=== PATIENT | female | born 1950 | race Caucasian/White ===

== ENCOUNTER 2016-07-12 10:57 | Emergency (ER) | payer OTHER ==
[2016-07-12] MEDS ORDERED: cefTRIAXone 1 GM VIAL ONE (12:00)
--- NOTE | 2016-07-12 12:02 | ED Physician Documentation ---
History of Present Illness - Stated complaint Stated Complaint: ELEV BLOOD SUGAR - Chief complaint Chief Complaint: General - History obtained from History obtained from: Patient, Family - History of Present Illness Timing: How many days ago (10) - Additonal information Additional information: 65 y/o female has been ill with cough and congestion for about 2 weeks and her sugar has been running high. She has not been testing since about March and she had an A1C done yesterday that was very elevated and her doctor has asked her to come in to the ED for evaluation. She has been drinking a lot of water recently. Review of Systems Constitutional: denies: Fever, Chills Eyes: denies: Decreased vision Ears: denies: Ear pain Nose: reports: Rhinorrhea / runny nose, Congestion Throat: denies: Sore throat Cardiac: denies: Chest pain / pressure, Palpitations Respiratory: reports: Cough. denies: Dyspnea GI: reports: Nausea. denies: Abdominal Pain, Vomiting : denies: Dysuria, Frequency Skin: denies: Rash Musculoskeletal: denies: Neck pain, Back pain, Extremity pain PD PAST MEDICAL HISTORY - Past Medical History Past Medical History: Yes Cardiovascular: Hypertension, High cholesterol Endocrine/Autoimmune: Type 2 diabetes Musculoskeletal: Gout Other Past Medical History: Fibray's disease - Past Surgical History Past Surgical History: Yes - Present Medications Home Medications: Ambulatory Orders Medication Instructions Recorded Confirmed Aspirin [Aspir 81] 81 mg DAILY 04/05/15 07/12/16 Simvastatin 40 mg DAILY 04/05/15 07/12/16 Azithromycin [Zithromax] 250 mg PO DAILY #6 tablet 07/12/16 Lisinopril 5 mg PO DAILY 07/12/16 07/12/16 Metformin [Glucophage] 500 mg PO DAILY 07/12/16 07/12/16 - Allergies Allergies/Adverse Reactions: Allergies Allergy/AdvReac Type Severity Reaction Status Date / Time No Known Drug Allergies Allergy Verified 03/18/16 12:57 - Social History Does the pt smoke?: No Smoking Status: Never smoker Does the pt drink ETOH?: No Does the pt have substance abuse?: No PD ED PE NORMAL - Vitals Vital signs reviewed: Yes (hypertensive) - General General: Alert and oriented X 3, No acute distress, Well developed/nourished - HEENT HEENT: Atraumatic, PERRL, EOMI, Other (both TM's are inflammed) - Neck Neck: Supple, no meningeal sign, No bony TTP - Cardiac Cardiac: RRR, No murmur - Respiratory Respiratory: No respiratory distress, Clear bilaterally - Abdomen Abdomen: Soft, Non tender - Back Back: No CVA TTP, No spinal TTP - Derm Derm: Normal color, Warm and dry, No rash - Extremities Extremities: No deformity, No edema - Neuro Neuro: Alert and oriented X 3, No motor deficit, No sensory deficit, Normal speech - Psych Psych: Normal mood, Normal affect Results - Vitals Vitals: Vital Signs - 24 hr 07/12/16 07/12/16 11:01 13:15 Temperature 36.6 C 36.9 C Heart Rate 75 68 Respiratory 16 14 Rate Blood Pressure 156/71 H 138/53 H O2 Saturation 100 100 Oxygen O2 Source Room air - Labs Labs: Laboratory Tests 07/12/16 07/12/16 07/12/16 12:15 12:15 12:15 WBC 8.4 RBC 3.95 L Hgb 12.1 Hct 36.4 L MCV 92.1 MCH 30.7 MCHC 33.3 RDW 14.1 Plt Count 207 MPV 10.5 Neut # 5.3 Lymph # 2.2 Hardy # 0.7 Eos # 0.1 Baso # 0.1 Absolute Nucleated RBC 0.01 Nucleated RBCs 0.1 Sodium 134 L Potassium 4.9 Chloride 99 L Carbon Dioxide 27 Anion Gap 8.0 BUN 23 H Creatinine 0.7 Estimated GFR (MDRD) 85 L Glucose 286 H Lactic Acid Calcium 9.3 Total Bilirubin 0.7 AST 20 ALT 20 Alkaline Phosphatase 71 Troponin I < 0.04 Total Protein 7.1 Albumin 3.7 Globulin 3.4 Albumin/Globulin Ratio 1.1 Lipase 61 H Urine Color Urine Clarity Urine pH Ur Specific [place] Urine Protein Urine Glucose (UA) Urine Ketones Urine Occult Blood Urine Nitrite Urine Bilirubin Urine Urobilinogen Ur Leukocyte Esterase Ur Microscopic Review Urine Culture Comments 07/12/16 07/12/16 12:15 13:25 WBC RBC Hgb Hct MCV MCH MCHC RDW Plt Count MPV Neut # Lymph # Hardy # Eos # Baso # Absolute Nucleated RBC Nucleated RBCs Sodium Potassium Chloride Carbon Dioxide Anion Gap BUN Creatinine Estimated GFR (MDRD) Glucose Lactic Acid 1.6 Calcium Total Bilirubin AST ALT Alkaline Phosphatase Troponin I Total Protein Albumin Globulin Albumin/Globulin Ratio Lipase Urine Color YELLOW Urine Clarity CLEAR Urine pH 5.5 Ur Specific [place] <=1.005 Urine Protein NEGATIVE Urine Glucose (UA) 250 H Urine Ketones NEGATIVE Urine Occult Blood NEGATIVE Urine Nitrite NEGATIVE Urine Bilirubin NEGATIVE Urine Urobilinogen 0.2 (NORMAL) Ur Leukocyte Esterase NEGATIVE Ur Microscopic Review NOT INDICATED Urine Culture Comments NOT INDICATED Procedures - IVC sono (time) 1150 Bedside IVC sono: IVC measures (cm) (0.78), IVC collapsed c insp (cm) (complete) , Significant dehydration PD MEDICAL DECISION MAKING - ED course Complexity details: reviewed old records, reviewed results, re-evaluated patient , considered differential, d/w patient, d/w family ED course: 65 y/o female with cough and congestion feels the cough is improving but her blood sugar is high. She is found to have BOM and she is dehydrated from her diabetes. She is given IV saline and rocephin. She has some improvement with the fluid and I felt it was important to get the patient's blood glucose under 200 and it was 201. She is given a second saline bolus this time of 500ml and she is given IV regular insulin as well 7 units. She has improvement to 170 with treatment and she is released. Departure - Departure Disposition: 01 Home, Self Care Clinical Impression: Dehydration Otitis media Qualifiers: Otitis media type: suppurative Laterality: bilateral Chronicity: acute Recurrence: not specified as recurrent Spontaneous tympanic membrane rupture: without spontaneous rupture Qualified Code(s): H66.003 - Acute suppurative otitis media without spontaneous rupture of ear drum, bilateral Diabetes type 2, uncontrolled Qualifiers: Diabetes mellitus complication status: with other specified complication Diabetes mellitus mcc insulin use: without mcc use Qualified Code(s) : E11.69 - Type 2 diabetes mellitus with other specified complication Instructions: ED Dehydration, ED Otitis Media Abx Tx, ED Hyperglycemia Diabetic Follow-Up: BROOKE KIM [Primary Care Provider] - Prescriptions: Azithromycin [Zithromax] 250 mg PO DAILY #6 tablet Discharge Date/Time: 07/12/16 15:37
[2016-07-12] MEDS: SODIUM CHLORIDE 0.9% 1,000 ML IV ONE (12:09)
[2016-07-12] MEDS: cefTRIAXone 1 GM in SODIUM CHLORIDE 0.9% MINIBAG 100 ML IV STA (12:10)
[2016-07-12 12:30] LABS: BASOPHILS # (AUTO) 0.1 10^3/uL (0.0-0.1); BASOPHILS % (AUTO) 0.7 %; EOSINOPHILS # (AUTO) 0.1 10^3/uL (0.0-0.7); EOSINOPHILS % (AUTO) 1.7 %; HCT - HEMATOCRIT 36.4 % (37.0-47.0); HGB - HEMOGLOBIN 12.1 g/dL (12.0-16.0); LYMPHOCYTES # (AUTO) 2.2 10^3/uL (1.5-3.5); MEAN CORPUSCULAR HEMOGLOBIN 30.7 pg (27.0-31.0); MEAN CORPUSCULAR HGB CONC 33.3 g/dL (32.0-36.0); MEAN CORPUSCULAR VOLUME 92.1 fL (81.0-99.0); MEAN PLATELET VOLUME 10.5 fL (7.9-10.8); MONOCYTES # (AUTO) 0.7 10^3/uL (0.0-1.0); MONOCYTES % (AUTO) 8.9 %; NEUTROPHILS # (AUTO) 5.3 10^3/uL (1.5-6.6); NEUTROPHILS % (AUTO) 62.7 %; NUCLEATED RED BLOOD CELLS AUTO 0.1 /100WBC; RED BLOOD COUNT 3.95 10^6/uL (4.20-5.40); RED CELL DISTRIBUTION WIDTH 14.1 % (12.0-15.0); UNCORRECTED WHITE BLOOD COUNT 8.4 x10^3/uL; WHITE BLOOD COUNT 8.4 x10^3/uL (4.8-10.8)
[2016-07-12 12:45] LABS: CALCIUM 9.3 mg/dL (8.5-10.3); POTASSIUM 4.9 mmol/L (3.5-5.0)
[2016-07-12 12:57] LABS: ALBUMIN/GLOBULIN RATIO 1.1 (1.0-2.2); BILIRUBIN,TOTAL 0.7 mg/dL (0.2-1.0); CREATININE 0.7 mg/dL (0.4-1.0); TOTAL PROTEIN 7.1 g/dL (6.7-8.2)
[2016-07-12 13:16] VITALS: BP 138/53
[2016-07-12 14:13] LABS: BILIRUBIN,URINE NEGATIVE (NEGATIVE); PH,URINE 5.5 PH (5.0-7.5)
[2016-07-12 14:22] LABS: UA CHARGE (STRIP ONLY) YES; UR CULTURE IF IND NOT INDICATED
[2016-07-12] MEDS ORDERED: INSULIN REGULAR HUMAN 100 UNIT/1 ML 10 ML MDV ONE (14:44)
[2016-07-12] MEDS: INSULIN REGULAR HUMAN 100 UNIT/1 ML 10 ML MDV IVP STA (14:49)
[2016-07-12] MEDS: SODIUM CHLORIDE 0.9% 500 ML IV ONE (14:49)
== END 2016-07-12 15:37 | disposition home or self-care (01) ==
LOC: ED 10:57
DX: E86.0 Dehydration (principal); E11.65 Type 2 diabetes mellitus with hyperglycemia; Z79.84 Long term (current) use of oral hypoglycemic drugs; H66.003 Acute suppurative otitis media without spontaneous rupture of ear drum, bilateral; Z79.82 Long term (current) use of aspirin; I10 Essential (primary) hypertension; E78.00 Pure hypercholesterolemia, unspecified; M10.9 Gout, unspecified
CPT/HCPCS: 36415; 80053; 81001; 81003; 83605; 83690; 84484; 85025; 87086; 96374; 99283; 99284

== ENCOUNTER 2017-10-09 08:44 | Outpatient (CLI) | payer MEDICARE, OTHER | END 2017-10-09 08:45 | disposition home or self-care (01) | LOC: DI 08:44 | PROVIDERS: ATTEND Internal Medicine Cardiovascular Disease | DX: I48.92 Unspecified atrial flutter (principal); E75.21 Fabry (-Anderson) disease; I51.7 Cardiomegaly | CPT/HCPCS: 93306 ==

== ENCOUNTER 2017-10-09 10:07 | Outpatient (CLI) | payer MEDICARE, OTHER ==
[2017-10-09 10:51] LABS: CALCIUM 9.2 mg/dL (8.5-10.3); CREATININE 0.7 mg/dL (0.4-1.0)
[2017-10-09 11:17] LABS: THYROID STIMULATING HORMONE 3.36 uIU/mL (0.34-5.60)
[2017-10-09 11:19] LABS: FREE T4 (FREE THYROXINE) 0.76 ng/dL (0.58-1.64)
== END 2017-10-09 10:08 | disposition home or self-care (01) ==
LOC: LAB 10:07
PROVIDERS: ATTEND Internal Medicine Cardiovascular Disease
DX: I48.4 Atypical atrial flutter (principal); I10 Essential (primary) hypertension
CPT/HCPCS: 36415; 80048; 84439; 84443

== ENCOUNTER 2017-10-09 10:22 | Emergency (ER) | payer MEDICARE, OTHER ==
[2017-10-09] MEDS ORDERED: LIDOCAINE 1%-EPI 1:100000 20 ML MDV SUBQ STA (10:55)
[2017-10-09] MEDS ORDERED: LIDOCAINE 2%-EPI 1:100000 20 ML MDV ONE (11:07)
[2017-10-09] MEDS ORDERED: cephALEXin 250 MG CAPSULE PO STA (11:07)
--- NOTE | 2017-10-09 11:11 | ED Physician Documentation ---
PD HPI SKIN - Stated complaint Stated Complaint: BUMP UNDER LEFT ARM - Chief complaint Chief Complaint: Wound - History obtained from History obtained from: Patient - History of Present Illness Timing - onset: How many days ago (5) Location: Other (Left axilla.) Quality / character: Painful, Swelling, Draining Similar symptoms before: Has not had sx before - Additional information Additional information: The patient is a 67-year-old diabetic female who presents with a "lump" in her left axilla. She first noticed it 5 days ago, and it has been increasing in size since that time. There was drainage from the area yesterday. She denies fever. She denies history of similar symptoms in the past. Her blood sugars have been running in the 130 to 200 range. She denies history of similar symptoms in the past. Review of Systems Constitutional: denies: Fever Throat: denies: Sore throat Cardiac: denies: Chest pain / pressure Respiratory: denies: Dyspnea, Cough GI: denies: Abdominal Pain, Nausea, Vomiting : denies: Dysuria Skin: reports: Other (Swollen area and left axilla.) Musculoskeletal: denies: Extremity pain Neurologic: denies: Focal weakness, Numbness, Headache PD PAST MEDICAL HISTORY - Past Medical History Past Medical History: Yes Cardiovascular: Hypertension, High cholesterol, Atrial fibrillation Respiratory: Shortness of breath Neuro: None Endocrine/Autoimmune: Type 2 diabetes GI: Colon polyps, Hemorrhoids : None HEENT: Dental implants Psych: Depression Musculoskeletal: Osteoarthritis, Gout, Fatigue Derm: None - Past Surgical History Past Surgical History: Yes - Present Medications Home Medications: Ambulatory Orders Medication Instructions Recorded Confirmed Aspirin [Aspir 81] 81 mg DAILY 04/05/15 09/09/17 Simvastatin 40 mg DAILY 04/05/15 09/09/17 Lisinopril 5 mg PO DAILY 07/12/16 09/09/17 metFORMIN [Glucophage] 1,000 mg PO BID 07/12/16 09/09/17 Metoprolol Succinate 25 mg PO DAILY 10/09/17 Rivaroxaban [Xarelto] 10/09/17 cephALEXin [Cephalexin] 500 mg PO TID #15 tablet 10/09/17 - Allergies Allergies/Adverse Reactions: Allergies Allergy/AdvReac Type Severity Reaction Status Date / Time No Known Drug Allergies Allergy Verified 09/09/17 11:17 - Social History Does the pt smoke?: No Smoking Status: Never smoker Does the pt drink ETOH?: No Does the pt have substance abuse?: No PD ED PE NORMAL - Vitals Vital signs reviewed: Yes (hypertensive) - General General: Alert and oriented X 3, Well developed/nourished - HEENT HEENT: Atraumatic, Pharynx benign - Neck Neck: No adenopathy - Cardiac Cardiac: RRR - Respiratory Respiratory: No respiratory distress, Clear bilaterally - Derm Derm: No rash, Other (There is a 1.5 diameter area of erythema swelling and tenderness to palpation in the left axilla. There is no drainage currently. Distal neurovascular is intact.) - Extremities Extremities: No edema - Neuro Neuro: Alert and oriented X 3, No motor deficit, No sensory deficit Results - Vitals Vitals: Vital Signs - 24 hr 10/09/17 10/09/17 10/09/17 10:26 10:28 11:27 Temperature 36.3 C L 36.5 C Heart Rate 113 H 97 Respiratory 18 14 Rate Blood Pressure 148/80 H 135/74 H O2 Saturation 99 98 Oxygen O2 Source Room air - Labs Labs: Microbiology 10/09/17 11:05 Wound Culture - Preliminary Abscess Procedures - Abscess I&D (location) Left axilla Preparation: Alcohol, Lidocaine 2 %, With epi Incision: Incised with scalpel, Purulent drainage, Loculations broken, Irrigated , Culture obtained Other: Pt tolerated well, Dressing applied, Antibiotic prescribed PD MEDICAL DECISION MAKING - ED course Complexity details: re-evaluated patient, considered differential, d/w patient ED course: The patient's presentation is significant for small abscess in the left axilla. Treatment in the emergency department included incision and drainage. Culture from the abscess was sent to the lab and results are pending. Cephalexin 500 mg was administered orally. She is being discharged with prescription for cephalexin. I discussed with her the expected course of healing, antibiotic treatment and outpatient follow-up, as well as potentially worrisome signs or symptoms that should prompt reevaluation in the emergency department. Departure - Departure Disposition: 01 Home, Self Care Clinical Impression: Abscess Condition: Stable Instructions: ED Abscess IandD Follow-Up: BROOKE KIM [Primary Care Provider] - Prescriptions: cephALEXin [Cephalexin] 500 mg PO TID #15 tablet Comments: Take cephalexin 3 times daily as prescribed. Place hot soaks in your left axilla intermittently for the next 2 days. You can use Tylenol or ibuprofen if needed for discomfort. Follow up with your primary physician within 1-2 weeks. Call to schedule an appointment. Return to the emergency department if you develop increasing swelling, redness, pain in your axilla, or otherwise worsening symptoms. Discharge Date/Time: 10/09/17 11:29
[2017-10-09 11:29] VITALS: BP 135/74
== END 2017-10-09 11:29 | disposition home or self-care (01) ==
LOC: ED 10:22
DX: L02.412 Cutaneous abscess of left axilla (principal); I10 Essential (primary) hypertension; E11.9 Type 2 diabetes mellitus without complications; I48.91 Unspecified atrial fibrillation; Z79.01 Long term (current) use of anticoagulants; Z79.84 Long term (current) use of oral hypoglycemic drugs; Z79.82 Long term (current) use of aspirin; E78.00 Pure hypercholesterolemia, unspecified; I48.92 Unspecified atrial flutter; E75.21 Fabry (-Anderson) disease; I51.7 Cardiomegaly
CPT/HCPCS: 10060; 36415; 80048; 84439; 84443; 87070; 87205; 93306; 99283; A9270

== ENCOUNTER 2018-09-26 09:14 | Outpatient (CLI) | payer MEDICARE, OTHER | END 2018-09-26 09:15 | disposition home or self-care (01) | LOC: DI 09:14 | PROVIDERS: ATTEND Internal Medicine Cardiovascular Disease | DX: I50.9 Heart failure, unspecified (principal); I08.1 Rheumatic disorders of both mitral and tricuspid valves | CPT/HCPCS: 93306 ==

== ENCOUNTER 2018-12-22 17:39 | Emergency (ER) | payer MEDICARE, OTHER ==
[2018-12-22 17:47] VITALS: BP 139/75
--- NOTE | 2018-12-22 18:01 | ED Physician Documentation ---
History of Present Illness - Stated complaint Stated Complaint: R ARM SWELLING/BRUISING - Chief complaint Chief Complaint: General - History obtained from History obtained from: Patient, Family - History of Present Illness Pain level max: 0 Pain level now: 0 - Additonal information Additional information: 68-year-old female who is maintained on Xarelto had a cardiac cath last week and is still having bruising to the right arm. This is where the catheter was inserted. She noticed increased bruising after she cleaned out a pantry today. No pain. No numbness or tingling. Nothing makes it better or worse. Review of Systems Constitutional: denies: Fever, Chills GI: denies: Nausea, Vomiting Skin: denies: Rash Neurologic: denies: Focal weakness, Numbness PD PAST MEDICAL HISTORY - Past Medical History Cardiovascular: Hypertension, High cholesterol, Atrial fibrillation Respiratory: Shortness of breath Endocrine/Autoimmune: Type 2 diabetes GI: Colon polyps, Hemorrhoids : None HEENT: Dental implants Psych: Depression Musculoskeletal: Osteoarthritis, Gout, Fatigue Derm: None - Past Surgical History Past Surgical History: Yes - Present Medications Home Medications: Ambulatory Orders Medication Instructions Recorded Confirmed Simvastatin 40 mg DAILY 04/05/15 11/26/18 Lisinopril 10 mg PO DAILY 07/12/16 11/26/18 metFORMIN [Glucophage] 1,000 mg PO BID 07/12/16 11/26/18 Metoprolol Succinate 25 mg PO DAILY 10/09/17 11/26/18 Rivaroxaban [Xarelto] 1 tab PO QPM 10/09/17 11/26/18 - Allergies Allergies/Adverse Reactions: Allergies Allergy/AdvReac Type Severity Reaction Status Date / Time No Known Drug Allergies Allergy Verified 12/22/18 17:47 - Social History Does the pt smoke?: No Smoking Status: Never smoker Does the pt drink ETOH?: No Does the pt have substance abuse?: No PD ED PE NORMAL - Vitals Vital signs reviewed: Yes - General General: Alert and oriented X 3, No acute distress, Well developed/nourished - HEENT HEENT: Moist mucous membranes - Neck Neck: Supple, no meningeal sign - Cardiac Cardiac: RRR, Strong equal pulses - Respiratory Respiratory: No respiratory distress, Clear bilaterally - Abdomen Abdomen: Soft, Non tender, Non distended - Derm Derm: Warm and dry - Extremities Extremities: Other (Right forearm -Diffuse ecchymosis, mainly centered around medial aspect of the anterior elbow where the catheter was inserted. The bruising follows fascial planes. No redness or warmth. Neurovascularly intact) - Neuro Neuro: Alert and oriented X 3 - Psych Psych: Normal mood, Normal affect Results - Vitals Vitals: Vital Signs - 24 hr 12/22/18 17:42 Temperature 36.7 C Heart Rate 59 L Respiratory 17 Rate Blood Pressure 139/75 H O2 Saturation 97 Oxygen O2 Source Room air PD MEDICAL DECISION MAKING - ED course Complexity details: considered differential, d/w patient ED course: Patient with bruising to the right forearm secondary to cardiac catheterization. Appears consistent and appropriate for the procedure. Does not appear excessive. No compartment syndrome. No infection. Patient counseled regarding signs and symptoms for which I believe and urgent re-evaluation would be necessary. Patient with good understanding of and agreement to plan and is comfortable going home at this time This document was made in part using voice recognition software. While efforts are made to proofread this document, sound alike and grammatical errors may occur. Departure - Departure Disposition: 01 Home, Self Care Clinical Impression: Traumatic ecchymosis of right upper arm Qualifiers: Encounter type: initial encounter Qualified Code(s): S40.021A - Contusion of right upper arm, initial encounter Condition: Good Instructions: ED Cardiac Cath Post Bleed Hematom Follow-Up: Dasia Arce ARNP [Primary Care Provider] - Within 1 week Comments: You can use ice to help stop the bleeding. You can use heating pads to help remove the coagulated blood. Return if you worsen Discharge Date/Time: 12/22/18 18:05
== END 2018-12-22 18:05 | disposition home or self-care (01) ==
LOC: ED 17:39
DX: S40.021A Contusion of right upper arm, initial encounter (principal); I10 Essential (primary) hypertension; E11.9 Type 2 diabetes mellitus without complications; Z98.890 Other specified postprocedural states
CPT/HCPCS: 99282

== ENCOUNTER 2020-04-27 15:37 | Outpatient (CLI) | payer MEDICARE, OTHER | END 2020-04-27 15:38 | disposition home or self-care (01) | LOC: COV 15:37 | PROVIDERS: ATTEND Surgery | DX: Z01.812 Encounter for preprocedural laboratory examination (principal); E75.21 Fabry (-Anderson) disease; Z20.828 Contact with and (suspected) exposure to other viral communicable diseases ==

== ENCOUNTER 2020-05-01 07:27 | Day surgery (SDC) | payer MEDICARE, OTHER ==
--- NOTE | 2020-05-01 08:02 | ANESTHESIA ---
Pre-Anesthesia VS, & Labs - Diagnosis fabry disease - Procedure mediport placement Height: 5 ft 2 in - NPO Last Fluid Intake: 4oz at 0400 - Is Patient ?: No Home Medications and Allergies Home Medications: Ambulatory Orders Furosemide 40 mg PO DAILY PRN 04/20/20 Insulin Glargine [Lantus Solostar] 30 unit SQ QPM 04/20/20 Potassium Chloride [Klor-Con 10] 10 meq PO DAILY PRN 04/20/20 Simvastatin 40 mg PO QPM 04/05/15 lisinopriL [Lisinopril] 15 mg PO QPM 07/12/16 metFORMIN [Glucophage] 1,000 mg PO BID 07/12/16 Metoprolol Succinate 50 mg PO DAILY 10/09/17 Rivaroxaban [Xarelto] 20 tab PO QPM 10/09/17 Dulaglutide [Trulicity] 0.75 mg SUBQ OAW 12/01/19 Furosemide 40 mg PO DAILY PRN 04/20/20 Insulin Glargine [Lantus Solostar] 30 unit SQ QPM 04/20/20 Potassium Chloride [Klor-Con 10] 10 meq PO DAILY PRN 04/20/20 Allergies/Adverse Reactions: Allergies Allergy/AdvReac Type Severity Reaction Status Date / Time No Known Drug Allergies Allergy Verified 04/30/20 14:38 Anes History & Medical History - Anesthetic History Anesthesia Complications: reports: Post-Operative Nausea/Vomiting - Medical History Cardiovascular: reports: Hypertension, High cholesterol, HI (1 year ago, saw car diologist last week. Well controlled, no symptoms), Atrial fibrillation Pulmonary: reports: Shortness of breath, Sleep apnea (does not use cpap) Gastrointestinal: reports: Colon polyps, Hemorrhoids Urinary: reports: None Neuro: reports: None Musculoskeletal: reports: Osteoarthritis, Gout, Fatigue Endocrine/Autoimmune: reports: Type 2 diabetes Blood Disorders: reports: None Skin: reports: None Smoking Status: Never smoker Psychosocial: reports: No issues indicated History of Cancer?: No - Surgical History General: Colonoscopy Cardiothoracic: Cardiac catheterization Gynecologic: Dilation and currettage Exam General: Alert, Oriented x3, Cooperative Dental: WNL Mouth Openin Fingerbreadth Neck Mobility: Normal Mallampati classification: II Thyromental Distance: 4-6 cm Respiratory: Lungs clear, Normal breath sounds, No respiratory distress, No accessory muscle use Cardiovascular: Other (irregular) Mental/Cognitive Status: Alert/Oriented X3, Normal for patient Plan Anesthesia Type: MAC Consent for Procedure(s) Verified and Reviewed: Yes Code Status: Attempt Resuscitation ASA classification: 3-Severe systemic disease Is this case an emergency?: No
[2020-05-01] MEDS ORDERED: LACTATED RINGERS 1,000 ML IV ONE ×2 (08:05→09:34)
[2020-05-01] MEDS ORDERED: LIDOCAINE 1% 50 ML MDV ONE (08:14)
[2020-05-01] MEDS ORDERED: BUPIVACAINE 0.25%-EPI 1:200000 PF 30 ML VIAL ONE (08:17)
[2020-05-01] MEDS ORDERED: CEFAZOLIN SODIUM IN 0.9 % NACL 2 GM/100 ML BAG IV ONE (08:18)
[2020-05-01] MEDS ORDERED: fentaNYL 100 MCG/2 ML VIAL IVP ONE (08:27)
[2020-05-01] MEDS ORDERED: MIDAZOLAM 2 MG/2 ML VIAL IVP ONE (08:27)
[2020-05-01] MEDS ORDERED: LIDOCAINE-MPF 2% 5 ML VIAL IM ONE (08:27)
[2020-05-01] MEDS ORDERED: PROPOFOL 200 MG/20 ML VIAL IVP ONE (08:27)
[2020-05-01] MEDS ORDERED: BUPIVACAINE 0.25% PF 30 ML VIAL ONE (08:30)
[2020-05-01] MEDS ORDERED: BUPIVACAINE 0.25% PF 30 ML VIAL SUBQ ONE ×2 (09:04)
[2020-05-01] MEDS ORDERED: LIDOCAINE 1% 50 ML MDV SUBQ ONE ×2 (09:04)
[2020-05-01] MEDS ORDERED: HYDROmorphone 0.5 MG/0.5 ML SYRINGE IVP PRN (09:17)
[2020-05-01] MEDS ORDERED: ePHEDrine 50 MG/ML VIAL IVP PRN (09:17)
[2020-05-01] MEDS ORDERED: METOCLOPRAMIDE 10 MG/2 ML VIAL IVP PRN (09:17)
[2020-05-01] MEDS ORDERED: ATROPINE ABBOJECT 1 MG/10 ML SYRINGE IVP PRN (09:17)
[2020-05-01] MEDS ORDERED: fentaNYL 100 MCG/2 ML VIAL IVP PRN (09:17)
[2020-05-01] MEDS ORDERED: ONDANSETRON 4 MG/2 ML VIAL IVP PRN ×2 (09:17→09:33)
[2020-05-01] MEDS ORDERED: NALOXONE 0.4 MG/ML VIAL IVP PRN (09:17)
[2020-05-01] MEDS ORDERED: MORPHINE 2 MG/ML CARPUJECT IVP PRN (09:17)
[2020-05-01] MEDS ORDERED: HYDROcod/ACETAM 5/325 MG TABLET PO PRN (09:33)
--- NOTE | 2020-05-01 09:38 | OPERATIVE REPORT ---
Operative Report - General Procedure Date: 05/01/20 Planned Procedure: power port placement Pre-Op Diagnosis: poor vascular access/ fabyrs disease Procedure Performed: left subclavian powerport placement Post Op Diagnosis: same - Procedure Note Anesthesia Technique: General LMA, Local Estimated Blood Loss (mL): 5 Findings: good position and flow Complications: none
[2020-05-01] MEDS ORDERED: LACTATED RINGERS 1,000 ML IV SCH (10:00)
--- NOTE | 2020-05-01 10:08 | XRAY Report ---
PROCEDURE: OR Port-A-Cath INDICATIONS: PORT PLACEMENT TECHNIQUE: C-arm fluoroscopy was performed during placement of a Port-A-Cath from a left-sided approa ch. COMPARISON: None. FINDINGS: Left-sided approach Port-A-Cath placement with tip extending into the atrial caval junction or superi or right atrium at termination of procedure. IMPRESSION: Port-A-Cath tip positioning within the atrial caval junction or superior right atrium. No pneumothora x after placement from left-sided approach. Reviewed by: Kenji Rivera MD on 05/01/2020 10:07 AM PST Approved by: Kenji Rivera MD on 05/01/2020 10:07 AM PST Station ID: [id number]
[2020-05-01] MEDS ORDERED: ONDANSETRON 4 MG/2 ML VIAL ONE (10:15)
--- NOTE | 2020-05-01 10:19 | OPERATIVE REPORT ---
DATE OF SERVICE: 05/01/2020 Physician: Moy Bee MD PREOPERATIVE DIAGNOSES 1. Poor vascular access. 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 POSTOPERATIVE DIAGNOSES 1. Poor vascular access. 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 PROCEDURE PERFORMED 1. Left subclavian vein PowerPort placement. 2. Fluoroscopic guidance for placement. SURGEON: Moy Bee MD MANAGER OF INVESTIGATIONS: None. ANESTHESIA: Laryngeal mask anesthesia. Local anesthesia with Marcaine. COMPLICATIONS: None. ESTIMATED BLOOD LOSS: 5 mL SPECIMENS: None. DRAINS: None. FINDINGS: Good PowerPort placement with tip at the junction of the atrium and the superior vena cava. The port flushed and aspirated very easily. 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 She has slowly developed poor vascular access over the years and presents for PowerPort placement. DESCRIPTION OF PROCEDURE: The patient was properly identified and brought to the operating room and placed in supine position. She feels uncomfortable lying flat. Laryngeal mask anesthesia was induced. She was prepped and draped in a sterile fashion and given preoperative antibiotics. The left subclavian vein was accessed with first pass of the needle. Guidewire was placed down towards the heart. This was done under fluoroscopic guidance and confirmed with fluoroscopic guidance. A 3 cm incision was then made left upper chest. A pocket was created for the PowerPort. Hemostasis was assured. [id number] tubing was then pulled through the subcutaneous tissue up to the venous access point. The [id number] tubing was then easily placed with a dilator pull- away sheath. Catheter was pulled back under fluoroscopic guidance to the desired position. Port was aspirated and flushed. Tubing was cut to size and port further assembled. The port was secured with 2 interrupted 5-0 Prolene sutures to the subcutaneous tissue. Buried interrupted subdermal 3-0 Vicryl sutures were then placed. The port was again aspirated and, this time, flushed with heparin. Skin was closed with buried interrupted running 4-0 Monocryl. Dressings were applied. She tolerated the procedure very well. TD: 05/01/2020 10:06 MICHELLE
--- NOTE | 2020-05-01 10:24 | ANESTHESIA POST OP EVALUATION ---
Anesthesia Post Eval - Post Anesthesia Eval Vitals: Last Vital Signs Temp 36.1 C L 05/01/20 10:01 Pulse 73 05/01/20 10:01 Resp 16 05/01/20 10:01 BP 155/77 H 05/01/20 10:01 Pulse Ox 95 05/01/20 10:01 CV Function Including HR & BP: positive: Stable Pain Control: positive: Satisfactory Nausea & Vomiting: positive: Negative Mental Status: positive: Baseline Respiratory Status: Airway Patent Hydration Status: Satisfactory Anesthesia Complications: positive: None
[2020-05-01 11:09] VITALS: BP 155/55
== END 2020-05-01 07:28 | disposition home or self-care (01) ==
LOC: SDS 07:27
PROVIDERS: ATTEND Surgery
DX: E75.21 Fabry (-Anderson) disease (principal); G47.30 Sleep apnea, unspecified; I10 Essential (primary) hypertension; I25.2 Old myocardial infarction; E11.9 Type 2 diabetes mellitus without complications; J45.909 Unspecified asthma, uncomplicated; I48.91 Unspecified atrial fibrillation; Z79.4 Long term (current) use of insulin
CPT/HCPCS: 36561; C1788; J0690; J7120

== ENCOUNTER 2020-08-10 13:07 | Emergency (ER) | payer MEDICARE, OTHER ==
[2020-08-10 13:20] VITALS: BP 155/78
--- NOTE | 2020-08-10 13:43 | ED Physician Documentation ---
History of Present Illness - Stated complaint Stated Complaint: LT FOOT PX - Chief complaint Chief Complaint: Ext Problem - Additonal information Additional information: 69-year-old female presents the emergency department with acute on chronic left foot pain. She reports that for for 15 to 20 years she has had pain on the dorsum of her left foot extending from the fourth metatarsal to the ankle. This pain typically flares 2-3 times a year. 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 She takes Xarelto daily due to the risk of DVT with this disorder. She also takes diuretics daily. However with increasing foot pain she has stopped taking the diuretics therefore her foot has been more swollen thus increasing the pain. She is taking Tylenol without relief of pain She states that she has had x-rays of this foot before but did not show any acute findings. She has never seen a foot doctor for this. No recent falls or trauma, no fevers. She denies dyspnea or chest pain. Review of Systems Constitutional: reports: Reviewed and negative Ears: reports: Reviewed and negative Nose: reports: Reviewed and negative Throat: reports: Reviewed and negative Cardiac: reports: Reviewed and negative Respiratory: reports: Reviewed and negative GI: reports: Reviewed and negative : reports: Reviewed and negative Skin: denies: Rash, Lesions Musculoskeletal: reports: Extremity pain (left foot). denies: Neck pain, Back pain Neurologic: reports: Reviewed and negative PD PAST MEDICAL HISTORY - Past Medical History Past Medical History: Yes Cardiovascular: Hypertension, High cholesterol, [place], Atrial fibrillation Respiratory: Shortness of breath, Sleep apnea Neuro: None Endocrine/Autoimmune: Type 2 diabetes GI: Colon polyps, Hemorrhoids : None HEENT: Dental implants Psych: Depression Musculoskeletal: Osteoarthritis, Gout, Fatigue Derm: None - Past Surgical History Past Surgical History: Yes Cardiovascular: Cardiac catheterization - Present Medications Home Medications: Ambulatory Orders Medication Instructions Recorded Confirmed Simvastatin 40 mg PO QPM 04/05/15 08/10/20 lisinopriL [Lisinopril] 15 mg PO QPM 07/12/16 08/10/20 metFORMIN [Glucophage] 1,000 mg PO BID 07/12/16 08/10/20 Metoprolol Succinate 50 mg PO DAILY 10/09/17 08/10/20 Rivaroxaban [Xarelto] 20 tab PO QPM 10/09/17 08/10/20 Dulaglutide [Trulicity] 1.75 mg SUBQ OAW 12/01/19 08/10/20 Furosemide 40 mg PO DAILY PRN 04/20/20 08/10/20 Insulin Glargine [Lantus Solostar] 32 unit SQ QPM 04/20/20 08/10/20 Potassium Chloride [Klor-Con 10] 10 meq PO DAILY PRN 04/20/20 07/26/20 - Allergies Allergies/Adverse Reactions: Allergies Allergy/AdvReac Type Severity Reaction Status Date / Time No Known Drug Allergies Allergy Verified 07/26/20 13:07 - Social History Does the pt smoke?: No Smoking Status: Never smoker Does the pt drink ETOH?: No Does the pt have substance abuse?: No - Immunizations Immunizations are current?: Yes - POLST Patient has POLST: No PD ED PE EXPANDED - General General: Alert, No acute distress - Extremities Extremities: Right foot (Tenderness on the dorsum of the foot extending from the fourth metatarsal to just below the ankle joint. Full range of motion of the ankle though painful. There is swelling of both feet but no erythema. No open sores or lesions), Other (Bilateral lower extremity swelling which is not new.) Results - Vitals Vitals: Vital Signs - 24 hr 08/10/20 13:17 Temperature 35.6 C L Heart Rate 61 Respiratory 16 Rate Blood Pressure 155/78 H O2 Saturation 99 Oxygen O2 Source Room air - Rads (name of study) left foot Radiology: Final report received (No acute findings.) PD MEDICAL DECISION MAKING - ED course Complexity details: reviewed results, re-evaluated patient, considered differential, d/w patient ED course: 69-year-old female presents the emergency department with acute on chronic left foot pain. This has been an ongoing concern for perhaps 15 years or more. She often has flares in this foot 2-3 times a year. She has never been seen by school bus driver/custodian. Because of the foot pain she stopped taking her diuretics as it is uncomfortable to walk more frequently to the bathroom. Both of her feet are swollen but this is bilateral. There is no posterior calf pain tenderness. She is anticoagulated on Xarelto. My suspicion for DVT is low. X-ray of the foot shows no acute fracture or pathology. I suspect that the worsening pain is in the setting of increased swelling and pressure on the foot. Patient was given a walker here in the emergency department to help offload weightbearing on the foot. I have advised her to follow-up closely with a school bus driver/custodian for longer-term evaluation of this chronic foot pain. On exam today there are no findings consistent with cellulitis. Departure - Departure Disposition: 01 Home, Self Care Clinical Impression: Left foot pain Condition: Stable Record reviewed to determine appropriate education?: Yes Comments: Sandra the x-ray of your foot does not show any broken bones. I suspect that the worsening pain right now is because of increased swelling since she stopped taking your diuretics pleat. Please begin reading resuming this medication. I have given you a walker here in the emergency department. This should help reduce the pain with weightbearing on this foot. However given how long you have had the foot pain it is appropriate for you to be seen by a school bus driver/custodian. It can take a few weeks or even a month in order to get an appointment with the school bus driver/custodian so I do recommend that you call today or Thursday to schedule an appointment.
--- NOTE | 2020-08-10 14:07 | XRAY Report ---
PROCEDURE: Foot 3 View LT INDICATIONS: pain dorsum 4th metatarsal TECHNIQUE: 3 views of the foot were acquired. COMPARISON: None FINDINGS: Bones: No fractures or dislocations. No suspicious bony lesions. Severe degenerative narrowing is present at the first MTP joint with subchondral sclerosis. Calcaneal spur is present. Soft tissues: No tibiotalar joint effusion. Achilles tendon appears normal. IMPRESSION: No visualized acute fracture or dislocation. However, occult injury cannot be excluded. Recommend nadia rt interval imaging follow-up in 7-10 days as clinically indicated for additional evaluation. Reviewed by: Judy Goodwin MD on 08/10/2020 2:05 PM PST Approved by: Judy Goodwin MD on 08/10/2020 2:05 PM PST Station ID: [id number]
== END 2020-08-10 15:50 | disposition home or self-care (01) ==
LOC: ED 13:07
DX: M79.672 Pain in left foot (principal); Z79.01 Long term (current) use of anticoagulants; I10 Essential (primary) hypertension; I48.91 Unspecified atrial fibrillation; E11.9 Type 2 diabetes mellitus without complications; Z79.4 Long term (current) use of insulin
CPT/HCPCS: 99283

== ENCOUNTER 2020-10-03 14:32 | Inpatient (IN) | payer MEDICARE, OTHER ==
--- OUTSIDE RECORDS SUMMARY | 2020-10-03 14:35 | EXTERNAL MEDICAL SUMMARY RPT | Continuity of Care Document ---
:1950 Demographics Phone Unavailable Preferred Language Unknown Marital Status Unknown Congregational Affiliation Unknown Race Unknown Ethnic Group Unknown Author Organization [facility] Address [address] [phone] Phone Social History date description facility [phone]
--- OUTSIDE RECORDS SUMMARY | 2020-10-03 14:37 | EXTERNAL MEDICAL SUMMARY RPT | Continuity of Care Document ---
:1950 Demographics Phone Unavailable Preferred Language Unknown Marital Status Unknown Mosque Affiliation Unknown Race Unknown Ethnic Group Unknown Author Organization [facility] Address [address] [phone] Phone Social History date description facility [phone]
--- NOTE | 2020-10-03 15:18 | XRAY Report ---
PROCEDURE: Chest 1 View X-Ray INDICATIONS: Chest pain TECHNIQUE: One view of the chest was acquired. COMPARISON: None FINDINGS: Surgical changes and devices: Left chest wall Port-A-Cath Lungs and pleura: No pneumothorax. Trace left-sided pleural effusion. Lungs are clear. Mediastinum: Mediastinal contours appear normal. Heart is enlarged Bones and chest wall: No suspicious bony lesions. Overlying soft tissues appear unremarkable. IMPRESSION: Trace left-sided pleural effusion. Cardiomegaly. Reviewed by: Jennifer Nassar MD, PhD on 10/03/2020 3:17 PM PDT Approved by: Jennifer Nassar MD, PhD on 10/03/2020 3:17 PM PDT Station ID: [id number]
--- NOTE | 2020-10-03 15:31 | ED Physician Documentation ---
History of Present Illness - Stated complaint Stated Complaint: SOA/HIGH BP - Chief complaint Chief Complaint: Cardiac - Additonal information Additional information: 70-year-old female presents the emergency department for evaluation of shortness of air, lower leg swelling and orthopnea. She reports that over the last week she has gained about 10 to 15 pounds. She denies that she has missed any of your diuretic doses but was out of her Xarelto for about 1 week. She does have a history of atrial fibrillation as well as Irena's disorder. She stated that she was able to get a 1 week prescription of Xarelto about 4 days ago. Past medical history does include history of congestive heart failure. She denies CP. 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 Fernando through the [facility] and she sees Dr[facility] Vas[facility]. Review of Systems Constitutional: denies: Fever, Chills Eyes: reports: Reviewed and negative Ears: reports: Reviewed and negative Nose: reports: Reviewed and negative Throat: reports: Reviewed and negative Cardiac: reports: Pedal edema. denies: Chest pain / pressure, Palpitations, Calf pain Respiratory: reports: Dyspnea. denies: Cough, Hemoptysis, Wheezing GI: denies: Abdominal Pain, Abdominal Swelling, Nausea, Vomiting : reports: Reviewed and negative Skin: reports: Reviewed and negative Musculoskeletal: reports: Reviewed and negative PD PAST MEDICAL HISTORY - Past Medical History Cardiovascular: Hypertension, High cholesterol, [place], Atrial fibrillation Respiratory: Shortness of breath, Sleep apnea Neuro: None Endocrine/Autoimmune: Type 2 diabetes GI: Colon polyps, Hemorrhoids : None HEENT: Dental implants Psych: Depression Musculoskeletal: Osteoarthritis, Gout, Fatigue Derm: None - Past Surgical History Past Surgical History: Yes Cardiovascular: Cardiac catheterization - Present Medications Home Medications: Ambulatory Orders Medication Instructions Recorded Confirmed Simvastatin 40 mg PO QPM 04/05/15 10/03/20 lisinopriL [Lisinopril] 15 mg PO QPM 07/12/16 10/03/20 metFORMIN [Glucophage] 1,000 mg PO BID 07/12/16 10/03/20 Metoprolol Succinate 50 mg PO DAILY 10/09/17 10/03/20 Rivaroxaban [Xarelto] 20 tab PO QPM 10/09/17 10/03/20 Dulaglutide [Trulicity] 1.75 mg SUBQ OAW 12/01/19 10/03/20 Furosemide 40 mg PO DAILY PRN 04/20/20 10/03/20 Insulin Glargine [Lantus Solostar] 32 unit SQ QPM 04/20/20 10/03/20 Potassium Chloride [Klor-Con 10] 10 meq PO DAILY PRN 04/20/20 10/03/20 - Allergies Allergies/Adverse Reactions: Allergies Allergy/AdvReac Type Severity Reaction Status Date / Time No Known Drug Allergies Allergy Verified 10/03/20 14:41 - Social History Does the pt smoke?: No Smoking Status: Never smoker Does the pt drink ETOH?: No Does the pt have substance abuse?: No - Immunizations Immunizations are current?: Yes - POLST Patient has POLST: No PD ED PE EXPANDED - General General: Alert, Other (dyspneic) - Cardiac Cardiac: Irregularly irregular, Murmur Present, Radial strong equal, Pedal strong equal, Cap refill < 2 sec - Respiratory Respiratory: Clear to ausultation umang. No: Distress, Labored - Abdomen Abdomen: Normal Bowel sounds. No: Tender to palpation - Derm Derm: Normal color, Warm and dry - Extremities Extremities: Pedal edema bilateral. No: Right calf TTP/cord, Left calf TTP/cord - Neuro Neuro: Alert and Oriented X 3, CNII-XII intact Results - Vitals Vitals: Vital Signs - 24 hr 10/03/20 10/03/20 14:37 15:26 Temperature 36.4 C L Heart Rate 74 78 Respiratory 22 25 H Rate Blood Pressure 188/74 H 155/100 H O2 Saturation 99 97 Oxygen O2 Source Room air - EKG (time done) 1501 Rate: Rate (enter#) (78) Rhythm: Atrial fibrillation [place]: Normal Intervals: RBBB, Other (LAFB) QRS: LVH Ischemia: Normal ST segments Compare to prior EKG: Old EKG unavailable Computer interpretation: Agree with computer - Labs Labs: Laboratory Tests 10/03/20 10/03/20 10/03/20 15:05 15:15 15:15 WBC 8.0 RBC 4.64 Hgb 14.1 Hct 44.4 MCV 95.7 MCH 30.4 MCHC 31.8 L RDW 15.3 H Plt Count 279 MPV 11.3 H Neut # (Auto) 5.6 Lymph # (Auto) 1.4 L Robertson # (Auto) 0.9 Eos # (Auto) 0.1 Baso # (Auto) 0.0 Absolute Nucleated RBC 0.00 Nucleated RBC % 0.0 Sodium 135 Potassium 4.2 Chloride 99 L Carbon Dioxide 26 Anion Gap 10.0 BUN 18 Creatinine 0.9 Estimated GFR (MDRD) 62 L Glucose 145 H Calcium 9.1 Total Bilirubin 1.2 H AST 33 ALT 20 Alkaline Phosphatase 273 H Troponin I High Sens B-Natriuretic Peptide Total Protein 6.6 L Albumin 3.0 L Globulin 3.6 Albumin/Globulin Ratio 0.8 L Lipase 49 Urine Color YELLOW Urine Clarity CLEAR Urine pH 6.0 Ur Specific [place] 1.025 Urine Protein >=300 H Urine Glucose (UA) NEGATIVE Urine Ketones NEGATIVE Urine Occult Blood SMALL H Urine Nitrite NEGATIVE Urine Bilirubin NEGATIVE Urine Urobilinogen 0.2 (NORMAL) Ur Leukocyte Esterase NEGATIVE Urine RBC 6-10 H Urine WBC 0-3 Ur Squamous Epith Cells MANY Squamous H Urine Bacteria Moderate H Urine Mucus Few Strands Ur Microscopic Review INDICATED Urine Culture Comments NOT INDICATED 10/03/20 10/03/20 15:15 15:15 WBC RBC Hgb Hct MCV MCH MCHC RDW Plt Count MPV Neut # (Auto) Lymph # (Auto) Robertson # (Auto) Eos # (Auto) Baso # (Auto) Absolute Nucleated RBC Nucleated RBC % Sodium Potassium Chloride Carbon Dioxide Anion Gap BUN Creatinine Estimated GFR (MDRD) Glucose Calcium Total Bilirubin AST ALT Alkaline Phosphatase Troponin I High Sens 44.4 H* B-Natriuretic Peptide 552 H Total Protein Albumin Globulin Albumin/Globulin Ratio Lipase Urine Color Urine Clarity Urine pH Ur Specific [place] Urine Protein Urine Glucose (UA) Urine Ketones Urine Occult Blood Urine Nitrite Urine Bilirubin Urine Urobilinogen Ur Leukocyte Esterase Urine RBC Urine WBC Ur Squamous Epith Cells Urine Bacteria Urine Mucus Ur Microscopic Review Urine Culture Comments - Rads (name of study) CXR Radiology: Final report received (left pleural effusion) PD MEDICAL DECISION MAKING - ED course Complexity details: reviewed old records, reviewed results, re-evaluated patient, d/w patient ED course: 62-year-old female presents emergency department for evaluation 1 week orthopnea shortness of air increased leg swelling and weight gain. She does have a history of heart failure. She was unfortunately out of her Xarelto for nearly a week before resuming it 3 to 4 days ago. She does have a history of atrial fibrillation as well as Fabry's disease. On exam she has some dyspnea and tachypnea but no hypoxia. There are no crackles in her lung gonzalez. Chest x-ray shows a mild left pericardiac pulm onary effusion but no other findings consistent with CHF. Her initial high- sensitivity troponin is 44 and her BNP is 500. 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 CT pulmonary angio is pending to rule out PE as she was out of her xarelto for nearly a week. 40 mg of lasix ordered here in the ED I have spoken with Dr. Quiros who agrees to admit the patient to observation for CHF exacerbation and likely stress test in am Departure - Departure Disposition: ED Place in Observation Clinical Impression: CHF (congestive heart failure) Qualifiers: Heart failure type: unspecified Heart failure chronicity: chronic Qualified Code(s): I50.9 - Heart failure, unspecified
[2020-10-03 15:32] LABS: BASOPHILS % (AUTO) 0.4 %; EOSINOPHILS # (AUTO) 0.1 10^3/uL (0.0-0.7); EOSINOPHILS % (AUTO) 0.9 %; HCT - HEMATOCRIT 44.4 % (37.0-47.0); HGB - HEMOGLOBIN 14.1 g/dL (12.0-16.0); LYMPHOCYTES # (AUTO) 1.4 10^3/uL (1.5-3.5); LYMPHOCYTES % (AUTO) 17.1 %; MEAN CORPUSCULAR HEMOGLOBIN 30.4 pg (27.0-31.0); MEAN CORPUSCULAR HGB CONC 31.8 g/dL (32.0-36.0); MEAN CORPUSCULAR VOLUME 95.7 fL (81.0-99.0); MEAN PLATELET VOLUME 11.3 fL (7.9-10.8); MONOCYTES # (AUTO) 0.9 10^3/uL (0.0-1.0); MONOCYTES % (AUTO) 11.4 %; NEUTROPHILS # (AUTO) 5.6 10^3/uL (1.5-6.6); NEUTROPHILS % (AUTO) 69.9 %; PLT - PLATELET COUNT 279 10^3/uL (130-450); RED BLOOD COUNT 4.64 10^6/uL (4.20-5.40); RED CELL DISTRIBUTION WIDTH 15.3 % (12.0-15.0)
[2020-10-03 15:44] LABS: BILIRUBIN,URINE NEGATIVE (NEGATIVE); GLUCOSE, URINE (UA) NEGATIVE (NEGATIVE); KETONES,URINE (UA) NEGATIVE (NEGATIVE); LEUKOCYTE ESTERASE, URINE NEGATIVE (NEGATIVE); NITRITE,URINE NEGATIVE (NEGATIVE); OCCULT BLOOD,URINE SMALL (NEGATIVE); PROTEIN,URINE >=300 mg/dL (NEGATIVE); UROBILINOGEN,URINE 0.2 (NORMAL) E.U./dL (NORMAL)
[2020-10-03 15:45] LABS: CLARITY,URINE CLEAR (CLEAR)
[2020-10-03 15:46] LABS: ALBUMIN/GLOBULIN RATIO 0.8 (1.0-2.2); BILIRUBIN,TOTAL 1.2 mg/dL (0.2-1.0); CALCIUM 9.1 mg/dL (8.5-10.3); CREATININE 0.9 mg/dL (0.4-1.0); POTASSIUM 4.2 mmol/L (3.5-5.0); TOTAL PROTEIN 6.6 g/dL (6.7-8.2)
[2020-10-03 15:58] LABS: SQUAMOUS EPITHELIAL CELL,UR MANY Squamous (<= Few); WBC,URINE 0-3 /HPF (0-5)
[2020-10-03 15:59] LABS: BACTERIA,URINE Moderate /HPF (None Seen); MUCUS,URINE Few Strands
[2020-10-03] MEDS ORDERED: FUROSEMIDE 40 MG/4 ML VIAL IVP STA (16:37)
[2020-10-03] MEDS ORDERED: IOPAMIDOL-300 100 ML VIAL ONE (16:44)
[2020-10-03] MEDS ORDERED: RIVAROXABAN 15 MG TABLET PO SCH (17:00)
--- NOTE | 2020-10-03 17:05 | HISTORY & PHYSICAL EXAMINATION ---
Chief Complaint - Chief Complaint Chief Complaint: dyspnea, lower extremity edema History of Present Illness - Admitted From Admitted From:: [facility] ED - History Obtained From Records Reviewed: yes History obtained from: patient - History of Present Illness HPI Comment/Other: Patient is a 70-year-old female with medical history significant for Fabry's disease, atrial fibrillation, arthritis, hypertension, coronary artery disease, hyperlipidemia and diabetes mellitus who presented to the ED with complaint of dyspnea and lower extremity swelling for the past week. Her lower extremities have been blistering and weeping as well. She also reports a 10 pound weight gain in the past week. Her dyspnea has progressively worsened in this week. She saw her primary care physician Dr. Charles And was told she had symptoms consistent with heart failure. She was advised to go to the ED. She then contacted her industrial spray painter's office. Her industrial spray painter is Dr. Fernando. Dr Hdz his colleague advised admission for a stress test and CT angiogram. In the ED she had a BNP of 552 and troponin of 44. Chest x-ray showed Trace left-sided pleural effusion. At bedside she appears somewhat uncomfortable. She denies chest pain, abdominal pain, nausea, vomiting, fever or chills. She gets significantly dyspneic walking a few feet. History - Past Medical History Cardiovascular: reports: Hypertension, High cholesterol, [place], Atrial fibrillation Respiratory: reports: Shortness of breath, Sleep apnea Neuro: reports: None Endocrine/Autoimmune: reports: Type 2 diabetes GI: reports: Colon polyps, Hemorrhoids : reports: None HEENT: reports: Dental implants Psych: reports: Depression Musculoskeletal: reports: Osteoarthritis, Gout, Fatigue Derm: reports: None MRSA Hx?: No Other Past Medical History: Fabrys' Disease - Past Surgical History Ortho: reports: Other (left wrist surgery) Cardiovascular: reports: Cardiac catheterization - Family & Social History Family History Comment/Other: Extensive family history of Fabry's disease. Her son, daughter, 2 sisters, father and grandchild all have Fabry's disease. Her father had an VA at age 42 and CVA at age 60. Her mother at age 73. She had an autoimmune disease that affected her liver. Living arrangement: At home Living Situation: With spouse/s.o. Social History Notes: She lives at home with her . She does not smoke tobacco products, consume alcohol or recreational substances. - POLST Patient has POLST: No POLST Status: Full Code Meds/Allgy - Home Medications Home Medications: Ambulatory Orders Medication Instructions Recorded Confirmed Simvastatin 40 mg PO QPM 04/05/15 10/03/20 lisinopriL [Lisinopril] 15 mg PO QPM 07/12/16 10/03/20 metFORMIN [Glucophage] 1,000 mg PO BID 07/12/16 10/03/20 Metoprolol Succinate 50 mg PO DAILY 10/09/17 10/03/20 Rivaroxaban [Xarelto] 20 tab PO QPM 10/09/17 10/03/20 Dulaglutide [Trulicity] 1.75 mg SUBQ OAW 12/01/19 10/03/20 Furosemide 40 mg PO DAILY PRN 04/20/20 10/03/20 Insulin Glargine [Lantus Solostar] 32 unit SQ QPM 04/20/20 10/03/20 Potassium Chloride [Klor-Con 10] 10 meq PO DAILY PRN 04/20/20 10/03/20 - Allergies Allergies/Adverse Reactions: Allergies Allergy/AdvReac Type Severity Reaction Status Date / Time No Known Drug Allergies Allergy Verified 10/03/20 14:41 Review of Systems - Constitutional Constitutional: reports: Weight gain. denies: Fatigue, Fever, Chills, Weakness - Eyes Eyes: denies: Pain, Dipolpia - Ears, Nose & Throat Ears, Nose & Throat: denies: Ear pain, Sore throat - Cardiovascular Cariovascular: reports: Irregular heart rate, Exertional dyspnea, Orthopnea. denies: Chest pain, Syncope - Respiratory Respiratory: reports: Orthopnea, SOB at rest, SOB with exertion. denies: Cough, Sputum production, Wheezing - Gastrointestinal Gastrointestinal: denies: Abdominal pain, Abdominal distention, Constipation, Di arrhea, Nausea, Vomiting, Reflux/heartburn - Genitourinary Genitourinary: denies: Dysuria, Frequency, Urgency, Hematuria, Incontinence, Flank pain - Musculoskeletal Musculoskeletal: denies: Muscle pain, Back pain, Muscle aches, Stiffness - Integumentary Integumentary: denies: Rash, Pruritis, Lesions, Dryness - Neurological Neurological: denies: General weakness, Focal weakness, Headache, Dizziness - Psychiatric Psychiatric: denies: Depression, Anxiety - Endocrine Endocrine: denies: Polyuria, Polydypsia - Hematologic/Lymphatic Hematologic/Lymphatic: denies: Anemia, Bruising, Petechiae Prior Level of Functionality: Patient is normally independent of activities of daily living She normally walks unaided however when her arthritis flares she uses a walker. Exam - Vital Signs Vital Signs: Vital Signs x48h Temp Pulse Resp BP Pulse Ox 10/03/20 15:26 78 25 H 155/100 H 97 10/03/20 14:37 36.4 C L 74 22 188/74 H 99 - Physical Exam General Appearance: positive: Alert, Mild distress (repiratory distress) Eyes Bilateral: positive: PERRL, EOMI ENT: positive: No signs of dehydration Neck: positive: No JVD, Trachea midline Respiratory: positive: Chest non-tender, Other (Mild to moderate respiratory distress Crackles bilaterally). negative: Wheezes Cardiovascular: positive: No murmur, Irregularly irregular Abdomen: positive: Non-tender, No organomegaly, Nml bowel sounds, No distention. negative: Guarding, Rebound Back: positive: Nml inspection Skin: positive: No rash, Warm, Dry, Other (hyperemic) Extremities: positive: Non-tender, Full ROM, Nml appearance, Pedal edema (+2) Neurologic/Psychiatric: positive: Oriented x3, Mood/affect nml Conclusion/Plan - Problem List (1) CHF (congestive heart failure) Conclusion/Plan: Patient given Lasix 40 mg IV x1 in the ED. We will continue Lasix 40 mg IV daily starting tomorrow. 2D echocardiogram ordered for the morning. Patient placed on a cardiac diet but will be n.p.o. after midnight for potential stress test. Qualifiers: Heart failure type: unspecified Heart failure chronicity: chronic Qualified Code(s): I50.9 - Heart failure, unspecified (2) Elevated troponin I level Conclusion/Plan: Possibly secondary to CHF. Initial troponin was 44.4, then 43,7 2hour later. Will trend troponin times 1 more after 6 hours. Patient has history of coronary artery disease. The patient's industrial spray painter with the [employer] system requested a stress test be done. We will order this for tomorrow. (3) Hx of coronary artery disease Conclusion/Plan: On metoprolol succinate 50 mg p.o. daily On simvastatin 40 mg p.o. every afternoon. On Xarelto 20 mg p.o. every afternoon Lisinopril 15 mg p.o. daily (4) Atrial fibrillation Conclusion/Plan: On metoprolol succinate 50 mg p.o. daily. On Xarelto 20 mg p.o. every afternoon. Patient ran out of Xarelto for 1 week and recently just resumed it. (5) Diabetes mellitus, type II Conclusion/Plan: Hold Metformin and Trulicity. She gets the Trulicity once a week every Thursday. Continue Lantus 32 units subcu every afternoon. Sliding scale insulin and Accu-Cheks before every meal at bedtime. (6) Hyperlipidemia Conclusion/Plan: On simvastatin 40 mg p.o. every afternoon (7) Hypertension Conclusion/Plan: On metoprolol succinate 50 mg p.o. daily. On lisinopril 15 mg p.o. every afternoon. On Lasix 40 mg IV daily. (8) Fabry disease Conclusion/Plan: Patient receives Fabrizyne infusions every 2 weeks at the [facility] via a left chest port. - Lab Results Fish Bones: 10/04/20 04:55 10/04/20 04:55 Core Measures - Anticipated LOS I expect patient to be DC'd or transferred within 96 hours.: Yes - DVT/VTE - Prophylaxis VTE/DVT Device ordered at admit?: Yes VTE/DVT Prophylaxis med ordered at admit?: Yes
--- OUTSIDE RECORDS SUMMARY | 2020-10-03 17:32 | EXTERNAL MEDICAL SUMMARY RPT | Continuity of Care Document ---
:1950 Demographics Phone Unavailable Preferred Language Unknown Marital Status Unknown Taoism Affiliation Unknown Race Unknown Ethnic Group Unknown Author Organization [place] [facility] Address [address] [phone] Phone Social History date description facility [phone]
[2020-10-03] MEDS ORDERED: POTASSIUM CHLORIDE 10 MEQ CAPSULE PO PRN (17:47)
--- NOTE | 2020-10-03 18:51 | CT Report ---
PROCEDURE: ANGIO CHEST W/WO INDICATIONS: r/o PE CONTRAST: IV CONTRAST: Isovue 300 ml: 100 PO CONTRAST: *NO PO CONTRAST TECHNIQUE: After the administration of intravenous contrast, 2 mm thick sections acquired from the pulmonary api roxy to the posterior costophrenic angles. 3-dimensional maximum intensity projection (MIP) coronal a nd sagittal reformats were then acquired through the thorax. For radiation dose reduction, the follow ing was used: automated exposure control, adjustment of mA and/or kV according to patient size. COMPARISON: Chest x-ray 10/03/2020. FINDINGS: Image quality: Excellent. Pulmonary arteries: Pulmonary arteries are normal in size, and demonstrate no intraluminal filling d efects to suggest central pulmonary embolism. Lungs and pleura: Lungs are clear. Small left-sided pleural effusion. No pneumothorax. Central and peripheral airways are patent. Mediastinum: Heart is enlarged small pericardial effusion. Reflux of contrast material into the infe rior vena cava and hepatic veins. Atherosclerotic calcifications noted in the aortic arch and the cor onary vasculature. No mediastinal or hilar adenopathy. Thoracic aorta is normal in caliber and enhan cement. Esophagus is normal in caliber, without hiatal hernia. Bones and chest wall: Right chest wall Port-A-Cath. No suspicious bony lesions. Ribs and thoracic s pine appear intact throughout. Spine degenerative disc disease and facet arthropathy are noted. The thyroid is normal. No axillary or supraclavicular adenopathy. Abdomen: Moderate amount of ascites noted in the visualized upper abdomen. Visualized upper abdomina l solid organs appear normal in the early arterial phase of enhancement. IMPRESSION: 1. No pulmonary embolus. 2. Cardiomegaly with small pericardial fluid collection. There is reflux the contrast material into t he IVC and hepatic veins which is a nonspecific finding, but can be related to right heart failure. 3. Atherosclerosis including the coronary vasculature. 4. Small left-sided pleural effusion. 5. Moderate amount of ascites in the upper abdomen. 6. No lung consolidation. Reviewed by: Jennifer Nassar MD, PhD on 10/03/2020 6:50 PM PDT Approved by: Jennifer Nassar MD, PhD on 10/03/2020 6:50 PM PDT Station ID: [id number]
[2020-10-03] MEDS ORDERED: IOPAMIDOL-300 100 ML VIAL IVP ONE (18:54)
[2020-10-03 18:59] LABS: B. PARAPERTUSSIS- RESP PCR PAN NOT DETECTED; B. PERTUSSIS- RESP PCR PANEL NOT DETECTED; C. PNEUMONIAE- RESP PCR PANEL NOT DETECTED; CORONAVIRUS 229E-RESP PCR NOT DETECTED; CORONAVIRUS HKU1-RESP PCR NOT DETECTED; CORONAVIRUS NL63-RESP PCR NOT DETECTED; CORONAVIRUS OC43-RESP PCR NOT DETECTED; HUMAN METAPNEUMOVIRUS NOT DETECTED; INFLUENZA A- RESP PCR PANEL NOT DETECTED; INFLUENZA B - RESP PCR PANEL NOT DETECTED; M. PNEUMONIAE- RESP PCR PANEL NOT DETECTED; PARAINFLUENZA VIRUS 1 NOT DETECTED; PARAINFLUENZA VIRUS 2 NOT DETECTED; PARAINFLUENZA VIRUS 3 NOT DETECTED; PARAINFLUENZA VIRUS 4 NOT DETECTED; RHINOVIRUS/ENTEROVIRUS NOT DETECTED; RSV- RESP PCR PANEL NOT DETECTED; SARS-CoV-2 -RESP PCR PANEL NOT DETECTED
[2020-10-03] MEDS: RIVAROXABAN 10 MG TABLET PO SCH (19:03)
[2020-10-03] MEDS: SODIUM CHLORIDE FLUSH 0.9% 10 ML SYRINGE IVP SCH ×2 (19:03→23:41)
[2020-10-03] MEDS: INSULIN ASPART 300 UNIT/3 ML PEN SUBQ SCH (20:45)
[2020-10-03] MEDS: INSULIN GLARGINE 300 UNIT/3 ML PEN SUBQ SCH (20:46)
[2020-10-03] MEDS: ACETAMINOPHEN 325 MG TABLET PO PRN (20:47)
[2020-10-03] MEDS: ATORVASTATIN 10 MG TABLET PO SCH (20:47)
[2020-10-03] MEDS: lisinopriL 5 MG TABLET PO SCH (20:47)
[2020-10-03] MEDS: SODIUM CHLORIDE FLUSH 0.9% 10 ML SYRINGE IVP PRN (23:41)
[2020-10-04 05:19] LABS: BASOPHILS # (AUTO) 0.1 10^3/uL (0.0-0.1); BASOPHILS % (AUTO) 0.7 %; EOSINOPHILS # (AUTO) 0.1 10^3/uL (0.0-0.7); EOSINOPHILS % (AUTO) 1.4 %; HCT - HEMATOCRIT 41.5 % (37.0-47.0); HGB - HEMOGLOBIN 13.3 g/dL (12.0-16.0); LYMPHOCYTES # (AUTO) 1.3 10^3/uL (1.5-3.5); LYMPHOCYTES % (AUTO) 18.5 %; MEAN CORPUSCULAR HEMOGLOBIN 30.4 pg (27.0-31.0); MEAN PLATELET VOLUME 11.4 fL (7.9-10.8); MONOCYTES # (AUTO) 1.1 10^3/uL (0.0-1.0); MONOCYTES % (AUTO) 15.7 %; NEUTROPHILS # (AUTO) 4.4 10^3/uL (1.5-6.6); NEUTROPHILS % (AUTO) 63.4 %; PLT - PLATELET COUNT 260 10^3/uL (130-450); RED BLOOD COUNT 4.37 10^6/uL (4.20-5.40); RED CELL DISTRIBUTION WIDTH 15.3 % (12.0-15.0)
[2020-10-04 05:24] LABS: CALCIUM 9.2 mg/dL (8.5-10.3); CREATININE 0.8 mg/dL (0.4-1.0)
[2020-10-04] MEDS: SODIUM CHLORIDE FLUSH 0.9% 10 ML SYRINGE IVP PRN (05:29)
[2020-10-04] MEDS ORDERED: FUROSEMIDE 40 MG/4 ML VIAL IVP SCH (06:00)
[2020-10-04] MEDS: INSULIN ASPART 300 UNIT/3 ML PEN SUBQ SCH ×4 (08:16→20:45)
[2020-10-04] MEDS: METOPROLOL SUCCINATE 25 MG TABLET PO SCH (08:34)
[2020-10-04] MEDS: MUPIROCIN 2% OINT 22 GM TUBE TOP SCH ×2 (08:35→20:46)
[2020-10-04] MEDS: SODIUM CHLORIDE FLUSH 0.9% 10 ML SYRINGE IVP SCH ×2 (08:36→15:24)
--- NOTE | 2020-10-04 08:49 | PHARMACY PROGRESS NOTE ---
- Best Possible Medication History Admit Date and Time: 10/03/20 7069 Processed by: Nursing (MEDICATION RECONCILIATION COMPLETED BY NURSING) Medication History completed: Yes Patient Interview: Completed As the person ultimately responsible for medication therapy, providers are able to order a medication from an existing home medication list in [facility] via the "Reconcile Routine" prior to Confirmation of that medication by credit support counselor. Such practice is discouraged except when the physician, in their clinical judgment, deems that a medical need exists for a medication without regard to previous use.
[2020-10-04] MEDS ORDERED: REGADENOSON 0.4 MG/5 ML SYRINGE IVP ONE ×2 (12:36→14:19)
--- NOTE | 2020-10-04 13:08 | CARDIAC PROCEDURE NOTE ---
DATE OF SERVICE: 10/04/2020 Physician: Hailey Sanchez MD, [facility] INDICATION FOR THE PROCEDURE: CHF. CARDIAC RISK FACTORS: Postmenopausal status, hypertension, advanced age. PROCEDURE: After signing informed consent, the patient underwent a Lexiscan pharmaceutical stress test with nuclear myocardial perfusion imaging. RESTING HEART: 69. PEAK HEART RATE: 90. RESTING BLOOD PRESSURE: 168/83. PEAK BLOOD PRESSURE: 162/81. Lexiscan was infused per protocol. The patient developed brief flushing and shortness of breath and nausea. She had no chest pain. Oxygen saturation was 94%-97% on room air throughout the test. RESTING EKG: Atrial fibrillation, right bundle branch block, left anterior fascicular block, LVH with strain pattern, poor R-wave progression. EKG AT PEAK: No new ST-segment or T-wave changes develop. SUMMARY: 1. Abnormal resting EKG. 2. Nuclear images were reported separately and showed: Normal tracer uptake, no perfusion defects to suggest ischemia or infarction. Normal LVEF. IMPRESSION: Normal stress test. cc: MD Raymond Santos MD TD: 10/04/2020 13:06 jl MICHELLE
[2020-10-04] MEDS: ACETAMINOPHEN 325 MG TABLET PO PRN (13:32)
[2020-10-04] MEDS ORDERED: FUROSEMIDE 20 MG/2 ML VIAL IVP SCH (14:00)
[2020-10-04] MEDS ORDERED: FUROSEMIDE 20 MG/2 ML VIAL IVP STA (16:14)
--- NOTE | 2020-10-04 16:23 | PROVIDER PROGRESS NOTE ---
Assessment/Plan - Problem List (1) CHF (congestive heart failure) Qualifiers: Heart failure type: unspecified Heart failure chronicity: chronic Qualified Code(s): I50.9 - Heart failure, unspecified Assessment/Plan: Patient has significant conversational dyspnea. She gulps for air after a couple of sentences. She was given Lasix 20mg IV bid today. Will give an extra dose of Lasix 20 mg IV this afternoon and then Lasix 40 mg IV in the morning. Results for 2D echocardiogram and stress test pending. Plan to place patient on Lasix 40 mg p.o. daily x7 days after discharge. She has been advised to follow-up with Dr. 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 (2) Elevated troponin I level Assessment/Plan: Troponin trend 44.4 > 43.7 > 49.2. Awaiting 2D echocardiogram and stress test results. (3) Hx of coronary artery disease Assessment/Plan: On metoprolol succinate 50 mg p.o. daily On simvastatin 40 mg p.o. every afternoon. On Xarelto 20 mg p.o. every afternoon Lisinopril 15 mg p.o. daily (4) Atrial fibrillation Assessment/Plan: On metoprolol succinate 50 mg p.o. daily. On Xarelto 20 mg p.o. every afternoon. Patient ran out of Xarelto for 1 week and recently just resumed it. (5) Diabetes mellitus, type II Assessment/Plan: Hold Metformin and Trulicity. She gets the Trulicity once a week every Thursday. Continue Lantus 32 units subcu every afternoon. Sliding scale insulin and Accu-Cheks before every meal at bedtime. (6) Hyperlipidemia Assessment/Plan: On simvastatin 40 mg p.o. every afternoon (7) Hypertension Assessment/Plan: On metoprolol succinate 50 mg p.o. daily. On lisinopril 15 mg p.o. every afternoon. On Lasix 40 mg IV daily. (9) Sleep apnea Assessment/Plan: Noncompliant with home BiPAP machine She has a home bipap machine for 6 months. She does not use it because of a feeling of suffocation. (10) Cellulitis of right lower extremity Assessment/Plan: Right Anterior perry Small area of redness around wound Mupirocin ointment applied bid - Current Meds Current Meds: Current Medications Generic Name Dose Route Start Last Admin Trade Name Alex PRN Reason Stop Dose Admin Acetaminophen 650 mg 10/03/20 16:54 10/04/20 13:32 Acetaminophen 325 Mg Tablet PO 650 mg Q4HR PRN Administration Pain 1 to 4 Atorvastatin Calcium 20 mg 10/03/20 21:00 10/03/20 20:47 Atorvastatin 10 Mg Tablet PO 20 mg QPM CONNIE Administration Insulin Aspart 1 - 5 unit 10/03/20 21:00 10/04/20 13:32 Insulin Aspart 300 Unit/3 Ml Pen SUBQ Not Given 0800,1200,1700,2100 [facility] Protocol Insulin Glargine 32 unit 10/03/20 21:00 10/03/20 20:46 Insulin Glargine 300 Unit/3 Ml Pen SUBQ 32 unit QPM CONNIE Administration Lisinopril 15 mg 10/03/20 21:00 10/03/20 20:47 Lisinopril 5 Mg Tablet PO 15 mg QPM CONNIE Administration Metoprolol Succinate 50 mg 10/04/20 09:00 10/04/20 08:34 Metoprolol Succinate 25 Mg Tablet PO 50 mg DAILY CONNIE Administration Mupirocin 1 applic 10/04/20 09:00 10/04/20 08:35 Mupirocin 2% Oint 22 Gm Tube TOP 1 applic BID CONNIE Administration Rivaroxaban 20 mg 10/03/20 18:00 10/03/20 19:03 Rivaroxaban 10 Mg Tablet PO 20 mg QDDINNER CONNIE Administration Sodium Chloride 10 ml 10/03/20 16:54 10/04/20 05:29 Sodium Chloride Flush 0.9% 10 Ml Syringe IVP 10 ml PRN PRN Administration NEEDED PER PROVIDER ORDERS Sodium Chloride 10 ml 10/03/20 17:00 10/04/20 15:24 Sodium Chloride Flush 0.9% 10 Ml Syringe IVP 10 ml 0100,0900,1700 CONNIE Administration - Lab Result Fish Bone Diagrams: 10/04/20 04:55 10/04/20 04:55 - Additional Planning My Orders: My Active Orders 10/03/20 16:54 Oxygen Therapy [RC] .PRN Telemetry- [RC] Q4HR Acetaminophen [Tylenol] 650 mg PO Q4HR PRN Sodium Chloride Flush 0.9% [Normal Saline Flush 0.9%] 10 ml IVP PRN PRN 10/03/20 16:55 Activity Orders [RC] Q2HR IO [RC] IOSHIFT Initiate Bowel Care Protocol [RC] .protocol Initiate Line Care Protocol [RC] QSHIFT Initiate Personal Care Protoco [RC] .protocol Vital Signs [RC] 0800,1600,0000 Code Status [OTHERS] Routine Condition of Patient [OTHERS] Routine DVT Prophylaxis [OTHERS] Routine 10/03/20 16:58 SCDs [RC] QSHIFT 10/03/20 17:00 Sodium Chloride Flush 0.9% [Normal Saline Flush 0.9%] 10 ml IVP 0100,0900,1700 10/03/20 17:06 Blood Glucose Checks - Eating [RC] 0800,1200,1700,2100 Initiate Hypoglycemia Protocol [RC] .protocol 10/03/20 17:47 Potassium Chloride [Micro-K] 10 meq PO DAILYWM PRN 10/03/20 18:00 Rivaroxaban [Xarelto] 20 mg PO QDDINNER 10/03/20 19:26 Stress Test Prep [RC] .ONCE 10/03/20 21:00 Atorvastatin [Lipitor] 20 mg PO QPM Insulin Aspart [NovoLOG] 1 - 5 unit SUBQ 0800,1200,1700,2100 Insulin Glargine [Lantus Solostar] 32 unit SUBQ QPM lisinopriL [Zestril] 15 mg PO QPM 10/04/20 08:00 Myocardial Perfusion STR/RST [NM] Routine 10/04/20 09:00 Metoprolol Succinate [Toprol Xl] 50 mg PO DAILY Mupirocin 2% Oint [Bactroban 2% Oint] 1 applic TOP BID 10/04/20 16:14 FUROSEMIDE INJ 20mg VIAL [LASIX INJ 20mg VIAL] 20 mg IVP ONCE STA 10/04/20 16:15 Admit [Admit \ Transfer \ Status] [RC] .ONCE Cardiac Diet [DIET] 10/04/20 17:01 Echo Transthoracic Complete [ECHO] Stat 10/05/20 05:00 BMP - BASIC METABOLIC PANEL [CHEM] DAILYLAB CBC - COMP BLD CT W/AUTO DIFF [HEME] DAILYLAB 10/05/20 09:00 FUROSEMIDE INJ 40mg VIAL [LASIX INJ 40 mg VIAL] 40 mg IVP DAILY 10/06/20 05:00 BMP - BASIC METABOLIC PANEL [CHEM] DAILYLAB CBC - COMP BLD CT W/AUTO DIFF [HEME] DAILYLAB Subjective - Subjective Patient Reports: Other (Patient has significant conversational dyspnea. She gulps in air after a couple sentences. Crackles still present on auscultation. +1 lower ext edema. Increased urination with lasix. Had an episode of significan dyspnea with cyanosis when proned for stress test imaging. Test had stopped) Objective Vital Signs: Vital Signs - 24 hr 10/03/20 10/03/20 10/03/20 19:10 20:34 23:50 Temperature 37.4 C 37.8 C 36.7 C Heart Rate Heart Rate [ 76 86 69 Brachial] Respiratory 26 H 24 16 Rate Blood Pressure 154/82 H 155/58 H 161/68 H [Right Brachial artery] O2 Saturation 98 98 100 10/04/20 10/04/20 10/04/20 03:35 05:13 05:24 Temperature 36.7 C 37.4 C Heart Rate 69 Heart Rate [ 55 L 69 Brachial] Respiratory 16 19 Rate Blood Pressure 176/87 H 153/86 H [Right Brachial artery] O2 Saturation 100 98 10/04/20 10/04/20 10/04/20 07:29 13:20 15:22 Temperature 37.5 C 36.3 C L Heart Rate Heart Rate [ 65 73 61 Brachial] Respiratory 16 18 25 H Rate Blood Pressure 150/76 H 150/80 H 163/80 H [Right Brachial artery] O2 Saturation 99 99 98 Oxygen O2 Source Room air I&O (Last 24 Hrs): Intake and Output Totals x24h 10/02/20 10/03/20 10/04/20 23:59 23:59 23:59 Intake Total 200 120 Output Total 900 3150 Balance -700 -3030 General: Alert, Oriented x3, Moderate distress (Respiratory) HEENT: PERRLA, EOMI Neck: Supple, No JVD Neuro: Alert, Non Focal, Oriented Times 3 Cardiovascular: No murmurs, Other (Irregularly irregular rhythm) Respiratory: Chest non-tender, Other (crackles in lung bases bilaterally Moderate conversational dyspnea) Abdomen: Normal bowel sounds, Soft, No tenderness Comments/Notes: wound on right anterior perry with mild erythema Weeping - Results Results: Laboratory Results WBC 7.0 x10^3/uL (4.8-10.8) 10/04/20 04:55 RBC 4.37 10^6/uL (4.20-5.40) 10/04/20 04:55 Hgb 13.3 g/dL (12.0-16.0) 10/04/20 04:55 Hct 41.5 % (37.0-47.0) 10/04/20 04:55 MCV 95.0 fL (81.0-99.0) 10/04/20 04:55 MCH 30.4 pg (27.0-31.0) 10/04/20 04:55 MCHC 32.0 g/dL (32.0-36.0) 10/04/20 04:55 RDW 15.3 % (12.0-15.0) H 10/04/20 04:55 Plt Count 260 10^3/uL (130-450) 10/04/20 04:55 MPV 11.4 fL (7.9-10.8) H 10/04/20 04:55 Neut # (Auto) 4.4 10^3/uL (1.5-6.6) 10/04/20 04:55 Lymph # (Auto) 1.3 10^3/uL (1.5-3.5) L 10/04/20 04:55 [place] # (Auto) 1.1 10^3/uL (0.0-1.0) H 10/04/20 04:55 Eos # (Auto) 0.1 10^3/uL (0.0-0.7) 10/04/20 04:55 Baso # (Auto) 0.1 10^3/uL (0.0-0.1) 10/04/20 04:55 Absolute Nucleated RBC 0.00 x10^3/uL 10/04/20 04:55 Nucleated RBC % 0.0 /100WBC 10/04/20 04:55 Sodium 137 mmol/L (135-145) 10/04/20 04:55 Potassium 4.0 mmol/L (3.5-5.0) 10/04/20 04:55 Chloride 100 mmol/L (101-111) L 10/04/20 04:55 Carbon Dioxide 27 mmol/L (21-32) 10/04/20 04:55 Anion Gap 10.0 (6-13) 10/04/20 04:55 BUN 17 mg/dL (6-20) 10/04/20 04:55 Creatinine 0.8 mg/dL (0.4-1.0) 10/04/20 04:55 Estimated GFR (MDRD) 71 (>89) L 10/04/20 04:55 Glucose 150 mg/dL (70-100) H 10/04/20 04:55 POC Whole Bld Glucose 139 mg/dL (70 - 100) H 10/04/20 13:12 Calcium 9.2 mg/dL (8.5-10.3) 10/04/20 04:55 Total Bilirubin 1.2 mg/dL (0.2-1.0) H 10/03/20 15:15 AST 33 IU/L (10-42) 10/03/20 15:15 ALT 20 IU/L (10-60) 10/03/20 15:15 Alkaline Phosphatase 273 IU/L (42-121) H 10/03/20 15:15 Troponin I High Sens 49.2 ng/L (2.3-14.8) H* 10/03/20 23:02 B-Natriuretic Peptide 552 pg/mL (5-100) H 10/03/20 15:15 Total Protein 6.6 g/dL (6.7-8.2) L 10/03/20 15:15 Albumin 3.0 g/dL (3.2-5.5) L 10/03/20 15:15 Globulin 3.6 g/dL (2.1-4.2) 10/03/20 15:15 Albumin/Globulin Ratio 0.8 (1.0-2.2) L 10/03/20 15:15 Lipase 49 U/L (22-51) 10/03/20 15:15 Urine Color YELLOW 10/03/20 15:05 Urine Clarity CLEAR (CLEAR) 10/03/20 15:05 Urine pH 6.0 PH (5.0-7.5) 10/03/20 15:05 Ur Specific [place] 1.025 (1.002-1.030) 10/03/20 15:05 Urine Protein >=300 mg/dL (NEGATIVE) H 10/03/20 15:05 Urine Glucose (UA) NEGATIVE mg/dL (NEGATIVE) 10/03/20 15:05 Urine Ketones NEGATIVE mg/dL (NEGATIVE) 10/03/20 15:05 Urine Occult Blood SMALL (NEGATIVE) H 10/03/20 15:05 Urine Nitrite NEGATIVE (NEGATIVE) 10/03/20 15:05 Urine Bilirubin NEGATIVE (NEGATIVE) 10/03/20 15:05 Urine Urobilinogen 0.2 (NORMAL) E.U./dL (NORMAL) 10/03/20 15:05 Ur Leukocyte Esterase NEGATIVE (NEGATIVE) 10/03/20 15:05 Urine RBC 6-10 /HPF (0-5) H 10/03/20 15:05 Urine WBC 0-3 /HPF (0-5) 10/03/20 15:05 Ur Squamous Epith Cells MANY Squamous (<= Few) H 10/03/20 15:05 Urine Bacteria Moderate /HPF (None Seen) H 10/03/20 15:05 Urine Mucus Few Strands 10/03/20 15:05 Ur Microscopic Review INDICATED 10/03/20 15:05 Urine Culture Comments NOT INDICATED 10/03/20 15:05 Nasal Adenovirus (PCR) NOT DETECTED 10/03/20 17:43 Nasal B. parapertussis DNA (PCR) NOT DETECTED 10/03/20 17:43 Nasal Coronavir 229E PCR NOT DETECTED 10/03/20 17:43 Nasal Coronavir HKU1 PCR NOT DETECTED 10/03/20 17:43 Nasal Coronavir NL63 PCR NOT DETECTED 10/03/20 17:43 Nasal Coronavir OC43 PCR NOT DETECTED 10/03/20 17:43 Nasal Enterovir/Rhinovir PCR NOT DETECTED 10/03/20 17:43 Nasal Influenza B PCR NOT DETECTED 10/03/20 17:43 Nasal Influenza A PCR NOT DETECTED 10/03/20 17:43 Nasal Parainfluen 1 PCR NOT DETECTED 10/03/20 17:43 Nasal Parainfluen 2 PCR NOT DETECTED 10/03/20 17:43 Nasal Parainfluen 3 PCR NOT DETECTED 10/03/20 17:43 Nasal Parainfluen 4 PCR NOT DETECTED 10/03/20 17:43 Nasal RSV (PCR) NOT DETECTED 10/03/20 17:43 Nasal B.pertussis DNA PCR NOT DETECTED 10/03/20 17:43 Nasal C.pneumoniae (PCR) NOT DETECTED 10/03/20 17:43 Brian Human Metapneumo PCR NOT DETECTED 10/03/20 17:43 Nasal M.pneumoniae (PCR) NOT DETECTED 10/03/20 17:43 Nasal SARS-CoV-2 (PCR) NOT DETECTED 10/03/20 17:43 ABX Reporting Has patient been on IV antibiotics over the past 48 hours?: No
[2020-10-04] MEDS: RIVAROXABAN 10 MG TABLET PO SCH (16:39)
--- NOTE | 2020-10-04 17:05 | Nuclear Medicine Report ---
PROCEDURE: Rest and pharmacological myocardial perfusion SPECT with gated imaging and ejection fraction INDICATIONS: CHF RADIOPHARMACEUTICAL: 11.5 mCi Tc-99m Myoview IV at rest and 41.9 mCi Tc-99m Myoview IV at peak exerc ise. [id number] was performed. TECHNIQUE: Radiopharmaceutical was injected at peak stress test, and also at rest. SPECT images wer e obtained. SPECT myocardial perfusion images were displayed in short axis, horizontal long axis, an d vertical long axis views. Gated images were reviewed using Auto[employer] software. COMPARISON: None available. FINDINGS: Raw data: There is good myocardial labeling by radiotracer. No significant motion artifacts. Lung- to-heart ratio is 0.37 (normal is less than 0.38 for tetrafosmin tracer). Left ventricle function: Gated images demonstrate normal left ventricle wall thickening. No segment al wall motion abnormality. No transient ischemic dilation; TID is 1.1 (normal less than 1.3). The left ventricle resting end-diastolic volume is normal. Left ventricle stress ejection fraction is gr eater than 70%; normal values are above 45%. Myocardial perfusion: There is normal distribution of activity in the left and right ventricular galdino cardium. No fixed or reversible perfusion defects. IMPRESSION: 1. Normal myocardial perfusion images. No perfusion defect to suggest myocardial ischemia or infarct. 2. Normal left ventricular volume and systolic function. 3. Please correlate with stress EKG result. The result was discussed with [place]. PQRS ATTESTATIONS: Measure 322 - Is this imaging test primarily performed on a low-risk surgery patient for preoperative evaluation within 30 days preceding their low-risk non-cardiac surgery? Low-risk surgery is defined as cardiac or myocardial infarction less than 1%, including (but not limited to) endoscopic pr ocedures, superficial procedures, cataract surgery, and excisional breast surgery: Answer: No Measure 323 - Is this imaging test performed primarily for the monitoring of an asymptomatic patient who had percutaneous coronary intervention on the visit date or within 2 years of the visit date? An swer: No Measure 324 - Is this imaging test performed primarily for the initial detection and risk assessment on an asymptomatic, low coronary heart disease patient? Low CHD risk definition = clinicians should consider the maximum number of available patient factors used to estimate risk based on [place] (A TP III criteria), typically age, gender, diabetes, smoking status, and use of blood pressure medicati on, and integrate age appropriate estimates for missing elements, such as LDL or standard blood press ure. Answer: No Reviewed by: Adebayo Moreno MD on 10/04/2020 5:04 PM PDT Approved by: Adebayo Moreno MD on 10/04/2020 5:04 PM PDT Station ID: [id number]
[2020-10-04] MEDS: INSULIN GLARGINE 300 UNIT/3 ML PEN SUBQ SCH (20:45)
[2020-10-04] MEDS: ATORVASTATIN 10 MG TABLET PO SCH (20:45)
[2020-10-04] MEDS: lisinopriL 5 MG TABLET PO SCH (20:45)
[2020-10-05] MEDS: SODIUM CHLORIDE FLUSH 0.9% 10 ML SYRINGE IVP PRN ×2 (00:14→05:30)
[2020-10-05] MEDS: SODIUM CHLORIDE FLUSH 0.9% 10 ML SYRINGE IVP SCH ×2 (00:14→08:51)
[2020-10-05 05:16] LABS: BASOPHILS % (AUTO) 0.5 %; EOSINOPHILS # (AUTO) 0.1 10^3/uL (0.0-0.7); EOSINOPHILS % (AUTO) 1.1 %; HCT - HEMATOCRIT 41.9 % (37.0-47.0); HGB - HEMOGLOBIN 13.5 g/dL (12.0-16.0); LYMPHOCYTES # (AUTO) 1.1 10^3/uL (1.5-3.5); LYMPHOCYTES % (AUTO) 15.2 %; MEAN CORPUSCULAR HEMOGLOBIN 30.1 pg (27.0-31.0); MEAN CORPUSCULAR HGB CONC 32.2 g/dL (32.0-36.0); MEAN CORPUSCULAR VOLUME 93.3 fL (81.0-99.0); MEAN PLATELET VOLUME 11.3 fL (7.9-10.8); MONOCYTES # (AUTO) 0.9 10^3/uL (0.0-1.0); MONOCYTES % (AUTO) 11.8 %; NEUTROPHILS # (AUTO) 5.2 10^3/uL (1.5-6.6); PLT - PLATELET COUNT 262 10^3/uL (130-450); RED BLOOD COUNT 4.49 10^6/uL (4.20-5.40); RED CELL DISTRIBUTION WIDTH 15.2 % (12.0-15.0); WHITE BLOOD COUNT 7.4 x10^3/uL (4.8-10.8)
[2020-10-05 05:24] LABS: CALCIUM 8.9 mg/dL (8.5-10.3); CREATININE 0.7 mg/dL (0.4-1.0); POTASSIUM 3.9 mmol/L (3.5-5.0)
[2020-10-05] MEDS: FUROSEMIDE 40 MG/4 ML VIAL IVP SCH ×2 (05:30→08:51)
[2020-10-05 07:39] VITALS: BP 139/51
[2020-10-05] MEDS: INSULIN ASPART 300 UNIT/3 ML PEN SUBQ SCH (07:55)
--- NOTE | 2020-10-05 07:55 | DISCHARGE SUMMARY ---
Discharge Summary Admit Date: 10/03/20 Discharge Date: 10/05/20 Discharging Provider: Ankur Quiros Primary Care Provider: Iza Vasquez Code Status: Attempt Resuscitation Condition at Discharge: Stable Discharge Disposition: 01 Home, Self Care - DIAGNOSES Admission Diagnoses: CHF Elevated troponin History of coronary disease Atrial fibrillation Diabetes mellitus type 2 Hyperlipidemia Fabry's disease Discharge Diagnoses with Status of Each Condition: CHF: Chronic. Improved Elevated troponin: Stress Test Negative History of coronary disease: Chronic Atrial fibrillation: Chronic Diabetes mellitus type 2: Chronic Hyperlipidemia: Chronic Fabry's disease: Chronic Sleep apnea: Chronic Cellulitis of right lower extremity: Acute. Prescribed oral antibiotics (doxycycline) - HPI History of Present Illness: Patient is a 70-year-old female with medical history significant for Fabry's disease, atrial fibrillation, arthritis, hypertension, coronary artery disease, hyperlipidemia and diabetes mellitus who presented to the ED with complaint of dyspnea and lower extremity swelling for the past week. Her lower extremities have been blistering and weeping as well. She also reports a 10 pound weight gain in the past week. Her dyspnea has progressively worsened in this week. She saw her primary care physician Dr. Charles And was told she had symptoms consistent with heart failure. She was advised to go to the ED. She then contacted her security door installer's office. Her security door installer is Dr. Fernando. Dr Hdz his colleague advised admission for a stress test and CT angiogram. In the ED she had a BNP of 552 and troponin of 44. Chest x-ray showed Trace left-sided pleural effusion. At bedside she appears somewhat uncomfortable. She denies chest pain, abdominal pain, nausea, vomiting, fever or chills. She gets significantly dyspneic walking a few feet. - HOSPITAL COURSE Hospital Course: She was admitted and significantly diuresed with IV Lasix. She also underwent nuclear stress test which was negative. She had a 2D echocardiogram done on 10/04/20 Moderate concentric left ventricular hypertrophy. Overall left ventricular systolic function was normal with an ejection fraction of 60 to 65%. There was mild mitral regurgitation. M ild to moderate tricuspid regurgitation. Moderately abnormal right heart pressures at 60 mmHg. There was no aortic stenosis or aortic regurgitation. There was no pleural effusion. Discharged with advised to take Lasix 40 mg p.o. daily for 7 days. She is to follow-up with her security door installer Dr. Raymond Fernando on 10/12/20 as scheduled. She is agreeable to this plan. She also had right lower extremity redness consistent with cellulitis. She was prescribed doxycycline 150 mg p.o. twice daily for 5 days. - ALLERGIES Allergies/Adverse Reactions: Allergies Allergy/AdvReac Type Severity Reaction Status Date / Time No Known Drug Allergies Allergy Verified 10/03/20 14:41 - MEDICATIONS Home Medications: Ambulatory Orders Medication Instructions Recorded Confirmed Simvastatin 40 mg PO QPM 04/05/15 10/03/20 lisinopriL [Lisinopril] 15 mg PO QPM 07/12/16 10/03/20 metFORMIN [Glucophage] 1,000 mg PO BID 07/12/16 10/03/20 Metoprolol Succinate 50 mg PO DAILY 10/09/17 10/03/20 Rivaroxaban [Xarelto] 20 tab PO QPM 10/09/17 10/03/20 Dulaglutide [Trulicity] 1.75 mg SUBQ OAW 12/01/19 10/03/20 Furosemide 40 mg PO DAILY PRN 04/20/20 10/03/20 Insulin Glargine [Lantus Solostar] 32 unit SQ QPM 04/20/20 10/03/20 Potassium Chloride [Klor-Con 10] 10 meq PO DAILY PRN 04/20/20 10/03/20 Doxycycline Monohydrate 150 mg PO BID 5 Days #10 tablet 10/05/20 - PHYSICAL EXAM AT DISCHARGE General Appearance: positive: No acute distress, Alert Eyes Bilateral: positive: PERRL, EOMI ENT: positive: No signs of dehydration Neck: positive: No JVD, Trachea midline Respiratory: positive: Chest non-tender, No respiratory distress, Other. negative: Wheezes, Rales, Rhonchi Cardiovascular: positive: Irregularly irregular. negative: Tachycardia Abdomen: positive: Non-tender, Nml bowel sounds. negative: Guarding, Rebound, Other (Obese abdomen) Back: positive: Nml inspection Skin: positive: Other (right lower extremity) Extremities: positive: Pedal edema (+1) Neurologic/Psychiatric: positive: Oriented x3, Mood/affect nml - LABS Result Diagrams: 10/05/20 05:00 10/05/20 05:00 - FOLLOW UP Follow Up: Iza Vasquez (PCP) in 7-10 days Raymond Fernando (Tobacco Sorter) on 10/12/20 - TIME SPENT Time Spent in Discharge (Minutes): 25
--- NOTE | 2020-10-05 07:59 | Discharge Plan ---
Discharge Plan Problem Reviewed?: Yes Disposition: 01 Home, Self Care Condition: Stable Prescriptions: Doxycycline Monohydrate 150 mg PO BID 5 Days #10 tablet Diet: Cardiac (ADA diet) Activity Restrictions: Activity as Tolerated Shower Restrictions: No Health Concerns: You were admitted with complaint of difficulty breathing, lower extremity edema and 10 pound weight gain which has been progressive over 1 week. You were diagnosed with CHF exacerbation and was treated with Lasix IV. During the course of your to the hospital stay you had good urine output. This resulted in steady improvement in your breathing. Upon discharge you were advised to take your Lasix 40 mg p.o. daily for the next 7 days. You are to follow-up with Dr. Raymond Fernando your termite inspector within a week. You acknowledged this and have an appointment on 10/12/2020. You had nuclear stress test which was normal. You also had a 2D echocardiogram Which showed a normal ejection fraction of 60 to 65%. Overall left ventricular systolic function was normal. There was no aortic stenosis or aortic regurgitation. There was moderately abnormal right heart pressure at an RVSP of 60 mmHg. You also had some redness on your right lower extremity around scab concerning for cellulitis. Initially mupirocin ointment was applied to the area. However you were discharged home with a prescription of doxycycline 150 mg p.o. twice daily for 5 days. The above plan was explained to you. You expressed understanding and are in agreement. Plan of Treatment: You were admitted with complaint of difficulty breathing, lower extremity edema and 10 pound weight gain which has been progressive over 1 week. You were diagnosed with CHF exacerbation and was treated with Lasix IV. During the course of your to the hospital stay you had good urine output. This resulted in steady improvement in your breathing. Upon discharge you were advised to take your Lasix 40 mg p.o. daily for the next 7 days. You are to follow-up with Dr. Raymond Fernando your termite inspector within a week. You acknowledged this and have an appointment on 10/12/2020. You had nuclear stress test which was normal. You also had a 2D echocardiogram Which showed a normal ejection fraction of 60 to 65%. Overall left ventricular systolic function was normal. There was no aortic stenosis or aortic regurgita tion. There was moderately abnormal right heart pressure at an RVSP of 60 mmHg. You also had some redness on your right lower extremity around scab concerning for cellulitis. Initially mupirocin ointment was applied to the area. However you were discharged home with a prescription of doxycycline 150 mg p.o. twice daily for 5 days. The above plan was explained to you. You expressed understanding and are in agreement. Care Goals: You were admitted with complaint of difficulty breathing, lower extremity edema and 10 pound weight gain which has been progressive over 1 week. You were diagnosed with CHF exacerbation and was treated with Lasix IV. During the course of your to the hospital stay you had good urine output. This resulted in steady improvement in your breathing. Upon discharge you were advised to take your Lasix 40 mg p.o. daily for the next 7 days. You are to follow-up with Dr. Raymond Fernando your termite inspector within a week. You acknowledged this and have an appointment on 10/12/2020. You had nuclear stress test which was normal. You also had a 2D echocardiogram Which showed a normal ejection fraction of 60 to 65%. Overall left ventricular systolic function was normal. There was no aortic stenosis or aortic regurgitation. There was moderately abnormal right heart pressure at an RVSP of 60 mmHg. You also had some redness on your right lower extremity around scab concerning for cellulitis. Initially mupirocin ointment was applied to the area. However you were discharged home with a prescription of doxycycline 150 mg p.o. twice daily for 5 days. The above plan was explained to you. You expressed understanding and are in agreement. Assessment: You were admitted with complaint of difficulty breathing, lower extremity edema and 10 pound weight gain which has been progressive over 1 week. You were diagnosed with CHF exacerbation and was treated with Lasix IV. During the course of your to the hospital stay you had good urine output. This resulted in steady improvement in your breathing. Upon discharge you were advised to take your Lasix 40 mg p.o. daily for the next 7 days. You are to follow-up with Dr. Raymond Fernando your termite inspector within a week. You acknowledged this and have an appointment on 10/12/2020. You had nuclear stress test which was normal. You also had a 2D echocardiogram Which showed a normal ejection fraction of 60 to 65%. Overall left ventricular systolic function was normal. There was no aortic stenosis or aortic regurgitation. There was moderately abnormal right heart pressure at an RVSP of 60 mmHg. You also had some redness on your right lower extremity around scab concerning for cellulitis. Initially mupirocin ointment was applied to the area. However you were discharged home with a prescription of doxycycline 150 mg p.o. twice daily for 5 days. The above plan was explained to you. You expressed understanding and are in agreement. No Smoking: If you smoke, Please STOP! Call for help. Follow-up with: MARCY SANTOS MD [Primary Care Provider] -
[2020-10-05] MEDS: MUPIROCIN 2% OINT 22 GM TUBE TOP SCH (08:51)
[2020-10-05] MEDS: METOPROLOL SUCCINATE 25 MG TABLET PO SCH (08:51)
[2020-10-05] MEDS ORDERED: FUROSEMIDE 40 MG/4 ML VIAL IVP SCH (09:00)
--- NOTE | 2020-10-05 15:04 | XRAY Report ---
PROCEDURE: Chest 1 View X-Ray INDICATIONS: dyspnea, crackles TECHNIQUE: One view of the chest was acquired. COMPARISON: 10/03/2020 FINDINGS: Surgical changes and devices: Left chest wall Port-A-Cath is stable.. Lungs and pleura: No pleural effusions or pneumothorax. Lungs are clear. Mediastinum: Mediastinal contours appear normal. Heart is enlarged. Bones and chest wall: No suspicious bony lesions. Overlying soft tissues appear unremarkable. IMPRESSION: No acute cardiopulmonary disease process. Reviewed by: Jennifer Nassar MD, PhD on 10/05/2020 3:02 PM PDT Approved by: Jennifer Nassar MD, PhD on 10/05/2020 3:02 PM PDT Station ID: [id number]
== END 2020-10-05 11:51 | disposition home or self-care (01) | DRG 292 ==
LOC: ED 14:32 → MS2 16:54 → OBSVTOIN 10-04 16:15
PROVIDERS: ADMIT Internal Medicine; ATTEND Internal Medicine
DX: I11.0 Hypertensive heart disease with heart failure (principal); L03.115 Cellulitis of right lower limb; I50.9 Heart failure, unspecified; I48.91 Unspecified atrial fibrillation; E11.9 Type 2 diabetes mellitus without complications; I25.10 Atherosclerotic heart disease of native coronary artery without angina pectoris; E75.21 Fabry (-Anderson) disease; R77.8 Other specified abnormalities of plasma proteins; I08.2 Rheumatic disorders of both aortic and tricuspid valves; G47.30 Sleep apnea, unspecified; T45.516A Underdosing of anticoagulants, initial encounter; Z91.19 Patient's noncompliance with other medical treatment and regimen; Z20.822 Contact with and (suspected) exposure to COVID-19; Y92.9 Unspecified place or not applicable; I25.2 Old myocardial infarction; Z79.4 Long term (current) use of insulin; Z79.899 Other long term (current) drug therapy; Z83.49 Family history of other endocrine, nutritional and metabolic diseases
CPT/HCPCS: 36415; 71045; 71275; 78452; 80048; 80053; 81001; 83690; 83880; 84484; 85025; 87631; 93005; 93017; 93306; 96374; 96376; 99284; 99285; A9270; A9500; G0378; J1815; J2785; Q9967; 0202U; 81003; 87086

== ENCOUNTER 2020-10-23 10:49 | Outpatient (CLI) | payer MEDICARE, OTHER ==
[2020-10-23 11:22] LABS: CALCIUM 9.4 mg/dL (8.5-10.3); POTASSIUM 5.1 mmol/L (3.5-5.0)
== END 2020-10-23 10:50 | disposition home or self-care (01) ==
LOC: LAB 10:49
PROVIDERS: ATTEND Internal Medicine Cardiovascular Disease
DX: I10 Essential (primary) hypertension (principal)
CPT/HCPCS: 36415; 80048

== ENCOUNTER 2020-11-15 12:24 | Outpatient (CLI) | payer MEDICARE, OTHER ==
[2020-11-15 12:44] LABS: CALCIUM 9.1 mg/dL (8.5-10.3); POTASSIUM 5.6 mmol/L (3.5-5.0)
== END 2020-11-15 12:25 | disposition home or self-care (01) ==
LOC: LAB 12:24
PROVIDERS: ATTEND Internal Medicine Cardiovascular Disease
DX: I50.33 Acute on chronic diastolic (congestive) heart failure (principal)
CPT/HCPCS: 36415; 80048

== ENCOUNTER 2021-04-11 14:36 | Outpatient (CLI) | payer MEDICARE, OTHER ==
[2021-04-11 15:12] LABS: ALBUMIN 3.2 g/dL (3.2-5.5); CALCIUM 8.9 mg/dL (8.5-10.3); CREATININE 0.9 mg/dL (0.4-1.0)
[2021-04-11 15:40] LABS: CREATININE,URINE 190.3 mg/dL
== END 2021-04-11 14:37 | disposition home or self-care (01) ==
LOC: LAB 14:36
PROVIDERS: ATTEND Internal Medicine Nephrology
DX: R80.9 Proteinuria, unspecified (principal); N05.9 Unspecified nephritic syndrome with unspecified morphologic changes
CPT/HCPCS: 36415; 80048; 82040; 82570; 84156

== ENCOUNTER 2021-04-23 06:30 | Day surgery (SDC) | payer MEDICARE, OTHER ==
[2021-04-23] MEDS ORDERED: LACTATED RINGERS 1,000 ML IV ONE ×2 (07:13→08:58)
--- NOTE | 2021-04-23 07:30 | ANESTHESIA ---
Pre-Anesthesia VS, & Labs - Diagnosis Screening exam - Procedure colonoscopy Vital Signs: Temp Pulse Resp BP Pulse Ox 36.4 C L 78 22 167/109 H 100 04/23/21 06:39 04/23/21 06:39 04/23/21 06:39 04/23/21 06:39 04/23/21 06:39 Height: 5 ft 2 in Weight (kg): 108.6 kg Body Mass Index: 43.7 BMI Classification: Morbidly Obese - NPO >8 hours - Is Patient ?: No - Lab Results Current Lab Results: Laboratory Tests 04/23/21 07:01: POC Whole Bld Glucose 66 L Lab results reviewed: Yes Home Medications and Allergies Simvastatin 40 mg PO QPM 04/05/15 lisinopriL [Lisinopril] 10 mg PO QPM 07/12/16 metFORMIN [Glucophage] 1,000 mg PO BID 07/12/16 Metoprolol Succinate 50 mg PO DAILY 10/09/17 Rivaroxaban [Xarelto] 20 tab PO QPM 10/09/17 Dulaglutide [Trulicity] 0.75 mg SUBQ OAW 12/01/19 Furosemide 40 mg PO DAILY PRN 04/20/20 Insulin Glargine [Lantus Solostar] 34 unit SQ QPM 04/20/20 Allergies/Adverse Reactions: Allergies Allergy/AdvReac Type Severity Reaction Status Date / Time No Known Drug Allergies Allergy Verified 10/03/20 14:41 Anes History & Medical History - Anesthetic History Anesthesia Complications: reports: No previous complications - Medical History Cardiovascular: reports: Hypertension, High cholesterol, [place], Atrial fibrillation, Murmur, Other (venous stasis) Pulmonary: reports: Shortness of breath, Sleep apnea (does not use CPAP) Gastrointestinal: reports: Colon polyps, Hemorrhoids Urinary: reports: None Neuro: reports: None Musculoskeletal: reports: Osteoarthritis, Gout, Fatigue Endocrine/Autoimmune: reports: Type 2 diabetes Blood Disorders: reports: None Skin: reports: None Smoking Status: Never smoker Psychosocial: reports: No issues indicated History of Cancer?: No - Surgical History General: reports: Colonoscopy, Other Cardiothoracic: reports: Cardiac catheterization Gynecologic: reports: Dilation and currettage Orthopedic: reports: Other Exam General: Alert, Oriented x3, Cooperative, No acute distress Dental: WNL Mouth Openin Fingerbreadth Neck Mobility: Normal Mallampati classification: III Thyromental Distance: less than 4 cm Respiratory: Wheezing (exp.) Cardiovascular: Other (Irregular, murmur) Extremities: Other (edema, venous stasis ulcers) Mental/Cognitive Status: Alert/Oriented X3, Normal for patient Plan Anesthesia Type: Total IV Consent for Procedure(s) Verified and Reviewed: Yes Code Status: Attempt Resuscitation ASA classification: 4-Incapacitating disease Is this case an emergency?: No
[2021-04-23] MEDS ORDERED: PROPOFOL 500 MG/50 ML 500 MG/50 ML VIAL ONE (07:38)
[2021-04-23] MEDS ORDERED: ONDANSETRON 4 MG/2 ML VIAL ONE (07:38)
[2021-04-23 08:47] VITALS: BP 140/79
--- NOTE | 2021-04-23 14:17 | ANESTHESIA POST OP EVALUATION ---
Anesthesia Post Eval - Post Anesthesia Eval Vitals: Last Vital Signs Temp 36.2 C L 04/23/21 08:44 Pulse 71 04/23/21 08:44 Resp 22 04/23/21 08:44 BP 140/79 H 04/23/21 08:44 Pulse Ox 96 04/23/21 08:44 CV Function Including HR & BP: Stable Pain Control: Satisfactory Nausea & Vomiting: Negative Mental Status: Baseline Respiratory Status: Airway Patent Hydration Status: Satisfactory Anesthesia Complications: None
== END 2021-04-23 06:31 | disposition home or self-care (01) ==
LOC: SDS 06:30
PROVIDERS: ATTEND Surgery
PROC: 0DBL8ZZ Excision of Transverse Colon, Via Natural or Artificial Opening Endoscopic (ICD-10-PCS; 2021-04-23)
PROC: 0DBC8ZX Excision of Ileocecal Valve, Via Natural or Artificial Opening Endoscopic, Diagnostic (ICD-10-PCS; 2021-04-23)
PROC: 0DBH8ZZ Excision of Cecum, Via Natural or Artificial Opening Endoscopic (ICD-10-PCS; principal; 2021-04-23 07:30)
DX: Z12.11 Encounter for screening for malignant neoplasm of colon (principal); D12.0 Benign neoplasm of cecum; D12.3 Benign neoplasm of transverse colon; K64.8 Other hemorrhoids; K64.4 Residual hemorrhoidal skin tags; E75.21 Fabry (-Anderson) disease; E66.01 Morbid (severe) obesity due to excess calories; Z68.41 Body mass index [BMI] 40.0-44.9, adult; G47.30 Sleep apnea, unspecified
CPT/HCPCS: 45380; 45385; J7120

== ENCOUNTER 2021-05-06 13:16 | Emergency (ER) | payer MEDICARE, OTHER ==
[2021-05-06 14:11] LABS: BASOPHILS # (AUTO) 0.1 10^3/uL (0.0-0.1); BASOPHILS % (AUTO) 0.8 %; EOSINOPHILS # (AUTO) 0.5 10^3/uL (0.0-0.7); HCT - HEMATOCRIT 33.4 % (37.0-47.0); HGB - HEMOGLOBIN 10.5 g/dL (12.0-16.0); LYMPHOCYTES # (AUTO) 1.1 10^3/uL (1.5-3.5); MEAN CORPUSCULAR HGB CONC 31.4 g/dL (32.0-36.0); MEAN CORPUSCULAR VOLUME 92.3 fL (81.0-99.0); MEAN PLATELET VOLUME 10.2 fL (7.9-10.8); MONOCYTES % (AUTO) 11.6 %; NEUTROPHILS # (AUTO) 6.2 10^3/uL (1.5-6.6); NEUTROPHILS % (AUTO) 69.3 %; PLT - PLATELET COUNT 318 10^3/uL (130-450); RED BLOOD COUNT 3.62 10^6/uL (4.20-5.40); RED CELL DISTRIBUTION WIDTH 16.5 % (12.0-15.0); WHITE BLOOD COUNT 8.9 x10^3/uL (4.8-10.8)
--- NOTE | 2021-05-06 14:12 | XRAY Report ---
PROCEDURE: Chest 1 View X-Ray INDICATIONS: Chest Pain TECHNIQUE: One view of the chest was acquired. COMPARISON: 10/05/2020 FINDINGS: Surgical changes and devices: Left chest wall callie catheter is present, tip of which is at the cavoa trial junction. Lungs and pleura: No pleural effusions or pneumothorax. Lungs are clear. Mediastinum: Mediastinal contours appear normal. Heart size is normal. Bones and chest wall: No suspicious bony lesions. Overlying soft tissues appear unremarkable. IMPRESSION: No acute process. Reviewed by: Simran Lovell MD on 05/06/2021 2:10 PM PST Approved by: Simran Lovell MD on 05/06/2021 2:10 PM PST Station ID: [id number]
[2021-05-06 14:25] LABS: ALBUMIN 3.3 g/dL (3.2-5.5); ALBUMIN/GLOBULIN RATIO 0.9 (1.0-2.2); BILIRUBIN,TOTAL 0.9 mg/dL (0.2-1.0); CALCIUM 9.1 mg/dL (8.5-10.3); CREATININE 1.1 mg/dL (0.4-1.0); POTASSIUM 4.3 mmol/L (3.5-5.0); TOTAL PROTEIN 6.9 g/dL (6.7-8.2)
[2021-05-06] MEDS ORDERED: FUROSEMIDE 40 MG/4 ML VIAL IVP STA (15:10)
--- NOTE | 2021-05-06 15:13 | ED Physician Documentation ---
History of Present Illness - Stated complaint Stated Complaint: SOA,RETAINING FLUID - Chief complaint Chief Complaint: General - History obtained from History obtained from: Patient - Additonal information Additional information: Patient comes emergency department chief complaint of increasing fluid retention, lower extremity swelling, and shortness of breath over the last week. She has a history of CHF and is normally on Lasix 40 mg a day for this. She saw her doctor 3 days ago and states that her doctor doubled her Lasix. Today supposed to be the last day of the double Lasix dose and patient states that she does feel slightly better. However, she states she has been admitted to the hospital previously for CHF exacerbation and her doctor told her to come here, because she thought the patient might be at that point again. No other complaints at this time. Patient denies any chest pain. No fevers or cough. No nausea or vomiting. Review of Systems Ten Systems: 10 systems reviewed and negative Constitutional: reports: Reviewed and negative Eyes: reports: Reviewed and negative Ears: reports: Reviewed and negative Nose: reports: Reviewed and negative Throat: reports: Reviewed and negative Cardiac: reports: Reviewed and negative Respiratory: reports: Dyspnea GI: reports: Reviewed and negative : reports: Reviewed and negative Skin: reports: Reviewed and negative Musculoskeletal: reports: Extremity swelling Neurologic: reports: Reviewed and negative Psychiatric: reports: Reviewed and negative Endocrine: reports: Reviewed and negative Immunocompromised: reports: Reviewed and negative PD PAST MEDICAL HISTORY - Past Medical History Cardiovascular: Hypertension, High cholesterol, [place], Atrial fibrillation, Murmur, Other Respiratory: Shortness of breath, Sleep apnea Neuro: None Endocrine/Autoimmune: Type 2 diabetes GI: Colon polyps, Hemorrhoids : None HEENT: Dental implants Psych: Depression Musculoskeletal: Osteoarthritis, Gout, Fatigue Derm: None - Past Surgical History Past Surgical History: Yes Ortho: Other Cardiovascular: Cardiac catheterization - Present Medications Home Medications: Ambulatory Orders Medication Instructions Recorded Confirmed Simvastatin 40 mg PO QPM 04/05/15 05/02/21 lisinopriL [Lisinopril] 10 mg PO QPM 07/12/16 05/02/21 metFORMIN [Glucophage] 1,000 mg PO BID 07/12/16 05/02/21 Metoprolol Succinate 50 mg PO DAILY 10/09/17 05/02/21 Rivaroxaban [Xarelto] 20 tab PO QPM 10/09/17 05/02/21 Dulaglutide [Trulicity] 0.75 mg SUBQ OAW 12/01/19 05/02/21 Furosemide 40 mg PO DAILY PRN 04/20/20 05/02/21 Insulin Glargine [Lantus Solostar] 34 unit SQ QPM 04/20/20 05/02/21 - Allergies Allergies/Adverse Reactions: Allergies Allergy/AdvReac Type Severity Reaction Status Date / Time No Known Drug Allergies Allergy Verified 05/06/21 13:34 - Social History Does the pt smoke?: No Smoking Status: Never smoker Does the pt drink ETOH?: No Does the pt have substance abuse?: No - Immunizations Immunizations are current?: Yes - POLST Patient has POLST: No POLST Status: Full Code PD ED PE NORMAL - Vitals Vital signs reviewed: Yes - General General: Alert and oriented X 3, No acute distress, Well developed/nourished - HEENT HEENT: Atraumatic, PERRL, EOMI, Moist mucous membranes - Neck Neck: Supple, no meningeal sign - Cardiac Cardiac: RRR, No murmur - Respiratory Respiratory: No respiratory distress, Clear bilaterally - Abdomen Abdomen: Soft, Non tender, Other (Obese) - Derm Derm: Normal color, Warm and dry, No rash - Extremities Extremities: No deformity, No calf tenderness / cord, Other (Moderate edema bilateral lower extremities.) - Neuro Neuro: Alert and oriented X 3, guide delegate 2-12 intact, Normal speech - Psych Psych: Normal mood, Normal affect Results - Vitals Vitals: Vital Signs - 24 hr 05/06/21 05/06/21 13:29 15:38 Temperature 36.9 C Heart Rate 68 74 Respiratory 20 20 Rate Blood Pressure 136/83 H 154/68 H O2 Saturation 96 100 Oxygen O2 Source Room air - EKG (time done) 1435 Rate: Rate (enter#) (65) Rhythm: Atrial fibrillation [place]: Normal, Anterior hemiblock Intervals: Normal ND, RBBB QRS: LVH Ischemia: Normal ST segments Compare to prior EKG: Unchanged from prior EKG (10/17) Computer interpretation: Agree with computer - Labs Labs: Laboratory Tests 05/06/21 05/06/21 05/06/21 14:03 14:03 14:03 WBC 8.9 RBC 3.62 L Hgb 10.5 L Hct 33.4 L MCV 92.3 MCH 29.0 MCHC 31.4 L RDW 16.5 H Plt Count 318 MPV 10.2 Neut # (Auto) 6.2 Lymph # (Auto) 1.1 L Wolfe # (Auto) 1.0 Eos # (Auto) 0.5 Baso # (Auto) 0.1 Absolute Nucleated RBC 0.00 Nucleated RBC % 0.0 Sodium 137 Potassium 4.3 Chloride 95 L Carbon Dioxide 29 Anion Gap 13.0 BUN 27 H Creatinine 1.1 H Estimated GFR (MDRD) 49 L Glucose 215 H Calcium 9.1 Total Bilirubin 0.9 AST 30 ALT 16 Alkaline Phosphatase 154 H Troponin I High Sens 49.3 H* B-Natriuretic Peptide Total Protein 6.9 Albumin 3.3 Globulin 3.6 Albumin/Globulin Ratio 0.9 L Lipase 80 H 05/06/21 05/06/21 14:03 15:54 WBC RBC Hgb Hct MCV MCH MCHC RDW Plt Count MPV Neut # (Auto) Lymph # (Auto) Wolfe # (Auto) Eos # (Auto) Baso # (Auto) Absolute Nucleated RBC Nucleated RBC % Sodium Potassium Chloride Carbon Dioxide Anion Gap BUN Creatinine Estimated GFR (MDRD) Glucose Calcium Total Bilirubin AST ALT Alkaline Phosphatase Troponin I High Sens 47.0 H* B-Natriuretic Peptide 737 H Total Protein Albumin Globulin Albumin/Globulin Ratio Lipase PD MEDICAL DECISION MAKING - ED course Complexity details: reviewed results, re-evaluated patient, considered differential, d/w patient ED course: EKG showed atrial fibrillation but was unchanged from previous EKG back in September of this year. Labs showed a BNP of just over 700 and a troponin at baseline 49. Chest x-ray is actually clear. The patient was given 40 mg of Lasix IV and encouraged to stay on the double dose of Lasix for another several days, and then follow-up with her primary care physician. She is already improving clinically per her report, and is sticking with the Lasix program at this point is the best plan. I have discussed with the patient that she does not meet any criteria for admission to the hospital. Departure - Departure Disposition: 01 Home, Self Care Clinical Impression: Fluid retention Condition: Stable Instructions: ED Edema Legs Bilateral Comments: Your chest x-ray shows no fluid in your lungs. You have reported that you are starting to feel little better on the double dose of Lasix. The best plan is probably to continue on the increased dose of Lasix for another several days. You should plan to see your doctor either at the end of this week or the very beginning of next week. Please call our office first thing tomorrow to make an appointment. You should continue on the increased Lasix dose until you see your doctor, as long as it is not more then 7 days from now.
[2021-05-06 17:05] VITALS: BP 148/70
== END 2021-05-06 17:12 | disposition home or self-care (01) ==
LOC: ED 13:16
DX: R60.9 Edema, unspecified (principal); I11.0 Hypertensive heart disease with heart failure; I50.9 Heart failure, unspecified; E11.9 Type 2 diabetes mellitus without complications; Z79.899 Other long term (current) drug therapy; Z79.84 Long term (current) use of oral hypoglycemic drugs; I48.91 Unspecified atrial fibrillation; Z79.01 Long term (current) use of anticoagulants
CPT/HCPCS: 36415; 80053; 83690; 83880; 84484; 85025; 93005; 96374; 99284

== ENCOUNTER 2021-07-24 15:53 | Outpatient (CLI) | payer MEDICARE, OTHER ==
--- NOTE | 2021-07-25 17:00 | Ultrasound Report ---
PROCEDURE: Duplex Lwr Ext Arterial Bilat INDICATIONS: PERIPHERAL VASCULAR DISEASE TECHNIQUE: Color and pulse Doppler interrogation was performed of both lower extremity arterial systems, with im age documentation. COMPARISON: None FINDINGS: Right lower extremity: Common femoral artery: 134 cm/sec, with monophasic flow. Deep femoral artery: 60 cm/sec, with monophasic flow. Proximal superficial femoral artery: 108 cm/sec, with monophasic flow. Mid superficial femoral artery: 89 cm/sec, with monophasic flow. Distal superficial femoral artery: 72 cm/sec, with monophasic flow. Popliteal artery: 58 cm/sec, with monophasic flow. Posterior tibial artery: 114 cm/sec, with monophasic flow. Anterior tibial artery/dorsalis pedis: 46 cm/sec, with monophasic flow. Mcdonald-scale imaging description: Mild diffuse plaque Left lower extremity: Common femoral artery: 126 cm/sec, with monophasic flow. Deep femoral artery: 95 cm/sec, with monophasic flow. Proximal superficial femoral artery: 105 cm/sec, with monophasic flow. Mid superficial femoral artery: 122 cm/sec, with monophasic flow. Distal superficial femoral artery: 122 cm/sec, with monophasic flow. Popliteal artery: 104 cm/sec, with monophasic flow. Posterior tibial artery: 155 cm/sec, with monophasic flow. Anterior tibial artery/dorsalis pedis: 125 cm/sec, with monophasic flow. Mcdonald-scale imaging description: Mild diffuse plaque IMPRESSION: 1. Monophasic waveforms within the bilateral lower extremity arterial tree, suggestive of aortoiliac inflow stenosis. Further assessment with MR angiography runoff evaluation is recommended. 2. No significant outflow nor runoff vessel stenosis. Reviewed by: Simran Lovell MD on 07/25/2021 4:58 PM PST Approved by: Simran Lovell MD on 07/25/2021 4:58 PM PST Station ID: [id number]
== END 2021-07-24 15:54 | disposition home or self-care (01) ==
LOC: DI 15:53
PROVIDERS: ATTEND Nurse Practitioner
DX: E11.622 Type 2 diabetes mellitus with other skin ulcer (principal); E11.69 Type 2 diabetes mellitus with other specified complication; I73.9 Peripheral vascular disease, unspecified; L97.902 Non-pressure chronic ulcer of unspecified part of unspecified lower leg with fat layer exposed; Z79.4 Long term (current) use of insulin; R93.1 Abnormal findings on diagnostic imaging of heart and coronary circulation
CPT/HCPCS: 93925

== ENCOUNTER 2021-08-01 12:07 | Outpatient (CLI) | payer MEDICARE, OTHER ==
[2021-08-01 12:39] LABS: CALCIUM 8.7 mg/dL (8.5-10.3); CREATININE 1.6 mg/dL (0.4-1.0); MAGNESIUM 2.3 mg/dL (1.7-2.8); PHOSPHORUS 4.2 mg/dL (2.5-4.6); POTASSIUM 4.4 mmol/L (3.5-5.0)
== END 2021-08-01 12:08 | disposition home or self-care (01) ==
LOC: LAB 12:07
PROVIDERS: ATTEND Internal Medicine Cardiovascular Disease
DX: I50.32 Chronic diastolic (congestive) heart failure (principal)
CPT/HCPCS: 36415; 80069; 83735; 83880

== ENCOUNTER 2021-08-08 08:43 | Outpatient (CLI) | payer MEDICARE, OTHER | END 2021-08-08 08:44 | disposition home or self-care (01) | LOC: RT 08:43 | PROVIDERS: ATTEND Internal Medicine Cardiovascular Disease | DX: I50.9 Heart failure, unspecified (principal) | CPT/HCPCS: 93005 ==

== ENCOUNTER 2021-09-30 11:10 | Outpatient (CLI) | payer MEDICARE, OTHER ==
[2021-09-30 11:34] LABS: BASOPHILS # (AUTO) 0.1 10^3/uL (0.0-0.1); EOSINOPHILS # (AUTO) 0.1 10^3/uL (0.0-0.7); EOSINOPHILS % (AUTO) 1.8 %; HCT - HEMATOCRIT 36.4 % (37.0-47.0); HGB - HEMOGLOBIN 11.2 g/dL (12.0-16.0); LYMPHOCYTES % (AUTO) 14.1 %; MEAN CORPUSCULAR HEMOGLOBIN 25.3 pg (27.0-31.0); MEAN CORPUSCULAR HGB CONC 30.8 g/dL (32.0-36.0); MEAN CORPUSCULAR VOLUME 82.4 fL (81.0-99.0); MEAN PLATELET VOLUME 9.9 fL (7.9-10.8); MONOCYTES % (AUTO) 14.7 %; NEUTROPHILS # (AUTO) 4.6 10^3/uL (1.5-6.6); NEUTROPHILS % (AUTO) 68.1 %; PLT - PLATELET COUNT 302 10^3/uL (130-450); RED BLOOD COUNT 4.42 10^6/uL (4.20-5.40); RED CELL DISTRIBUTION WIDTH 22.7 % (12.0-15.0); WHITE BLOOD COUNT 6.8 x10^3/uL (4.8-10.8)
[2021-09-30 12:01] LABS: RBC MORPHOLOGY (MULTIPLE) 4+ ANISOCYTOSIS (NORMAL); SLIDE REVIEW? Indicated
[2021-09-30 12:09] LABS: ALBUMIN 3.4 g/dL (3.2-5.5); ALBUMIN/GLOBULIN RATIO 0.8 (1.0-2.2); ALKALINE PHOSPHATASE 242 IU/L (42-121); ALT ALANINE AMINOTRANSFERASE 23 IU/L (10-60); AST ASPARTATE AMINOTRANSFERASE 33 IU/L (10-42); BUN - BLOOD UREA NITROGEN 41 mg/dL (6-20); CALCIUM 8.8 mg/dL (8.5-10.3); CARBON DIOXIDE - CO2 24 mmol/L (21-32); CHLORIDE 101 mmol/L (101-111); CHOL/HDL RATIO 2.3 (<4.4); CHOLESTEROL 126 mg/dL; CK- CREATINE KINASE 38 IU/L (22-269); CREATININE 1.2 mg/dL (0.4-1.0); GFR - MDRD 45 (>89); GLUCOSE 135 mg/dL (70-100); HDL CHOLESTEROL 56 mg/dL; LDL CHOLESTEROL,CALCULATED 59 mg/dL; LDL/HDL RATIO 1.1 (<4.4); POTASSIUM 5.3 mmol/L (3.5-5.0); SODIUM 136 mmol/L (135-145); TOTAL PROTEIN 7.8 g/dL (6.7-8.2); TRIGLYCERIDES 55 mg/dL; VLDL CHOLESTEROL 11 mg/dL
[2021-09-30 12:26] LABS: THYROID STIMULATING HORMONE 9.1 uIU/mL (0.34-5.60)
[2021-09-30 12:49] LABS: ESTIMATED AVERAGE GLUCOSE 160 mg/dL (70-100); HEMOGLOBIN A1c% 7.2 % (4.27-6.07)
[2021-10-01 10:11] LABS: HEPATITIS C ANTIBODY NON-REACTIVE (NON-REACTIVE)
== END 2021-09-30 11:11 | disposition home or self-care (01) ==
LOC: LAB 11:10
PROVIDERS: ATTEND Internal Medicine
DX: I48.91 Unspecified atrial fibrillation (principal); I50.9 Heart failure, unspecified; I25.10 Atherosclerotic heart disease of native coronary artery without angina pectoris; E11.9 Type 2 diabetes mellitus without complications; E75.21 Fabry (-Anderson) disease; R80.9 Proteinuria, unspecified; E02 Subclinical iodine-deficiency hypothyroidism; Z11.59 Encounter for screening for other viral diseases; Z79.899 Other long term (current) drug therapy
CPT/HCPCS: 36415; 80053; 80061; 82550; 82607; 83036; 83721; 84439; 84443; 85025; 86803

== ENCOUNTER 2021-11-26 11:23 | Emergency (ER) | payer MEDICARE, OTHER ==
[2021-11-26 12:03] LABS: BASOPHILS % (AUTO) 0.5 %; EOSINOPHILS # (AUTO) 0.1 10^3/uL (0.0-0.7); EOSINOPHILS % (AUTO) 1.9 %; HCT - HEMATOCRIT 39.5 % (37.0-47.0); HGB - HEMOGLOBIN 12.2 g/dL (12.0-16.0); LYMPHOCYTES # (AUTO) 0.8 10^3/uL (1.5-3.5); LYMPHOCYTES % (AUTO) 13.5 %; MEAN CORPUSCULAR HEMOGLOBIN 26.5 pg (27.0-31.0); MEAN CORPUSCULAR HGB CONC 30.9 g/dL (32.0-36.0); MEAN CORPUSCULAR VOLUME 85.9 fL (81.0-99.0); MEAN PLATELET VOLUME 10.5 fL (7.9-10.8); MONOCYTES # (AUTO) 0.7 10^3/uL (0.0-1.0); MONOCYTES % (AUTO) 12.8 %; NEUTROPHILS # (AUTO) 4.1 10^3/uL (1.5-6.6); NEUTROPHILS % (AUTO) 71.1 %; PLT - PLATELET COUNT 241 10^3/uL (130-450); RED CELL DISTRIBUTION WIDTH 20.3 % (12.0-15.0); WHITE BLOOD COUNT 5.8 x10^3/uL (4.8-10.8)
--- NOTE | 2021-11-26 12:11 | XRAY Report ---
PROCEDURE: Chest 1 View X-Ray INDICATIONS: Chest pain TECHNIQUE: One view of the chest was acquired. COMPARISON: 05/06/2021 FINDINGS: Surgical changes and devices: None. Lungs and pleura: No pleural effusions or pneumothorax. Left chest wall Port-A-Cath tip is in SVC. Mediastinum: Mediastinal contours appear normal. Heart size is mildly enlarged. Bones and chest wall: No suspicious bony lesions. Overlying soft tissues appear unremarkable. IMPRESSION: No acute cardiopulmonary pathology. Reviewed by: Aristides Gilbert MD on 11/26/2021 12:09 PM PDT Approved by: Aristides Gilbert MD on 11/26/2021 12:09 PM PDT Station ID: [id number]
[2021-11-26 12:23] LABS: ALBUMIN 3.4 g/dL (3.2-5.5); ALBUMIN/GLOBULIN RATIO 0.7 (1.0-2.2); BILIRUBIN,TOTAL 0.9 mg/dL (0.2-1.0); CREATININE 1.4 mg/dL (0.4-1.0); POTASSIUM 4.3 mmol/L (3.5-5.0); TOTAL PROTEIN 8.2 g/dL (6.7-8.2)
[2021-11-26] MEDS ORDERED: FUROSEMIDE 40 MG/4 ML VIAL IVP STA (13:02)
--- NOTE | 2021-11-26 13:41 | CT Report ---
PROCEDURE: Abdomen/Pelvis WO INDICATIONS: abdominal distention TECHNIQUE: Noncontrast 5 mm thick sections acquired from the diaphragms to the symphysis. 5 mm coronal and sagi ttal reformats were then performed. For radiation dose reduction, the following was used: automated exposure control, adjustment of mA and/or kV according to patient size. COMPARISON: None. FINDINGS: Image quality: Excellent. ABDOMEN: Lung bases: Mild right effusion is present.. Heart size is enlarged with minimal pericardial effusio n. Solid organs: Liver is cirrhotic in appearance. The spleen is normal in size. Gallbladder demonstra micheal dependent stones without wall thickening Pancreas is normal in contours. No adrenal nodules. K idneys are mildly atrophic and size, without hydronephrosis or nephrolithiasis. Peritoneum and bowel: Unenhanced bowel loops are significantly obscured secondary to overlying ascit es. Significant abdominal and pelvic ascites is present. Nodes and vessels: No retroperitoneal or mesenteric adenopathy by size criteria. Aorta and inferior vena cava are normal in caliber. Miscellaneous: No ventral hernias. PELVIS: Genitourinary: Bladder wall thickness is normal. Miscellaneous: No inguinal hernias or adenopathy. Bones: No suspicious bony lesions. No vertebral body compression fractures. IMPRESSION: Significant abdominal and pelvic ascites suspected to be secondary to cirrhosis, as liver has a nodul ar appearance. Reviewed by: Judy Goodwin MD on 11/26/2021 1:40 PM PDT Approved by: Judy Goodwin MD on 11/26/2021 1:40 PM PDT Station ID: [id number]
[2021-11-26 13:56] LABS: INR 3.3 (0.8-1.2); PT - PROTHROMBIN TIME 36.8 secs (9.9-12.6)
[2021-11-26] MEDS ORDERED: LIDOCAINE 1% 2 ML VIAL SUBQ STA (14:02)
--- NOTE | 2021-11-26 16:17 | Ultrasound Report ---
PROCEDURE: Abdomen Limited INDICATIONS: fluid eval for paracentesis/jesica spot TECHNIQUE: Real-time scanning was performed of the abdominal and retroperitoneal organs, with image documentatio n. COMPARISON: None. FINDINGS: Ultrasound marking for paracentesis. Left lower quadrant was marked. Measurement from skin surface to fluid collection is 5 cm. IMPRESSION: Ultrasound guided localization for paracentesis. Reviewed by: Judy Goodwin MD on 11/26/2021 4:15 PM PDT Approved by: Judy Goodwin MD on 11/26/2021 4:15 PM PDT Station ID: [id number]
--- NOTE | 2021-11-26 16:59 | ED Physician Documentation ---
PD HPI DYSPNEA - Stated complaint Stated Complaint: SOA/FEET TURNING PURPLE - Chief complaint Chief Complaint: Cardiac - History obtained from History obtained from: Patient - Additional information Additional information: The patient comes to the emergency department chief complaint of swelling and difficulty breathing. She states that for the last couple months, she has been noticing increasing lower extremity swelling and enlargement of her abdomen, but that is gotten significantly worse over the last week. Patient states that she just feels very tight and thought that her toes and the bottoms of her feet looked purple today. She does have a history of chronic venous stasis. She states that she is not known to have any liver problems, although she did used to drink heavily earlier in her life. However, she states she does not drink anymore. She also states that her mother had some sort of autoimmune condition that targeted the liver and resulted in cirrhosis, though her mother was never a drinker. Patient denies any fevers or chills. No nausea or vomiting. No diarrhea. She denies any known history of congestive heart failure. No chest pain. No other complaints at this time. Review of Systems Ten Systems: 10 systems reviewed and negative Constitutional: reports: Reviewed and negative Eyes: reports: Reviewed and negative Ears: reports: Reviewed and negative Nose: reports: Reviewed and negative Throat: reports: Reviewed and negative Cardiac: reports: Reviewed and negative Respiratory: reports: Dyspnea GI: reports: Abdominal Swelling : reports: Reviewed and negative Skin: reports: Reviewed and negative Musculoskeletal: reports: Extremity swelling Neurologic: reports: Reviewed and negative Psychiatric: reports: Reviewed and negative Endocrine: reports: Reviewed and negative Immunocompromised: reports: Reviewed and negative PD PAST MEDICAL HISTORY - Past Medical History Past Medical History: Yes Cardiovascular: Hypertension, High cholesterol, [place], Atrial fibrillation, Murmur, Other Respiratory: Shortness of breath, Sleep apnea Neuro: None Endocrine/Autoimmune: Type 2 diabetes GI: Colon polyps, Hemorrhoids : None HEENT: Dental implants Psych: Depression Musculoskeletal: Osteoarthritis, Gout, Fatigue Derm: None Other Past Medical History: Fabryl's Disease - Past Surgical History Past Surgical History: Yes Ortho: Other Cardiovascular: Cardiac catheterization - Present Medications Home Medications: Ambulatory Orders Medication Instructions Recorded Confirmed Simvastatin 40 mg PO QPM 04/05/15 07/11/21 lisinopriL [Lisinopril] 15 mg PO QPM 07/12/16 07/11/21 metFORMIN [Glucophage] 1,000 mg PO BID 07/12/16 07/11/21 Metoprolol Succinate 50 mg PO DAILY 10/09/17 07/11/21 Rivaroxaban [Xarelto] 20 tab PO QPM 10/09/17 07/11/21 Dulaglutide [Trulicity] 0.75 mg SUBQ OAW 12/01/19 07/11/21 Furosemide 40 mg PO DAILY PRN 04/20/20 07/11/21 Insulin Glargine [Lantus Solostar] 34 unit SQ QPM 04/20/20 09/19/21 Ciprofloxacin HCl 1 tablet PO BID 5 Days #10 tablet 07/19/21 Doxycycline Hyclate 100 mg PO BID 7 Days #14 cap 08/06/21 - Allergies Allergies/Adverse Reactions: Allergies Allergy/AdvReac Type Severity Reaction Status Date / Time No Known Drug Allergies Allergy Verified 11/26/21 11:33 - Social History Does the pt smoke?: No Smoking Status: Never smoker Does the pt drink ETOH?: No Does the pt have substance abuse?: No - Immunizations Immunizations are current?: Yes - POLST Patient has POLST: No POLST Status: Full Code PD ED PE NORMAL - Vitals Vital signs reviewed: Yes - General General: Alert and oriented X 3, No acute distress, Well developed/nourished - HEENT HEENT: Atraumatic, PERRL, EOMI, Moist mucous membranes - Neck Neck: Supple, no meningeal sign - Cardiac Cardiac: RRR, No murmur, Strong equal pulses - Respiratory Respiratory: Clear bilaterally, Other (Mildly labored respirations with mild tachypnea.) - Abdomen Abdomen: Soft, Non tender, Other (Markedly distended abdomen with edema of abdominal wall.) - Derm Derm: Warm and dry, Other (Violaceous discoloration of plantar aspect of patient's feet and toes bilaterally, as well as the tips of the toes themselves. No induration or fluctuance.) - Extremities Extremities: No deformity, Other (Firm, bilateral pitting edema extending from ankles all the way to the groin bilaterally.) - Neuro Neuro: Alert and oriented X 3 - Psych Psych: Normal mood, Normal affect Results - Vitals Vitals: Oxygen O2 Source Room air - Labs Labs: Laboratory Tests 11/26/21 11/26/21 11/26/21 11:58 11:58 11:58 WBC 5.8 RBC 4.60 Hgb 12.2 Hct 39.5 MCV 85.9 MCH 26.5 L MCHC 30.9 L RDW 20.3 H Plt Count 241 MPV 10.5 Neut # (Auto) 4.1 Lymph # (Auto) 0.8 L [place] # (Auto) 0.7 Eos # (Auto) 0.1 Baso # (Auto) 0.0 Absolute Nucleated RBC 0.00 Nucleated RBC % 0.0 PT INR Sodium 135 Potassium 4.3 Chloride 95 L Carbon Dioxide 27 Anion Gap 13.0 BUN 36 H Creatinine 1.4 H Estimated GFR (MDRD) 37 L Glucose 102 H Calcium 9.0 Total Bilirubin 0.9 AST 30 ALT 16 Alkaline Phosphatase 175 H Troponin I High Sens 45.4 H* B-Natriuretic Peptide Total Protein 8.2 Albumin 3.4 Globulin 4.8 H Albumin/Globulin Ratio 0.7 L Lipase 52 H 11/26/21 11/26/21 11/26/21 11:58 11:58 13:49 WBC RBC Hgb Hct MCV MCH MCHC RDW Plt Count MPV Neut # (Auto) Lymph # (Auto) [place] # (Auto) Eos # (Auto) Baso # (Auto) Absolute Nucleated RBC Nucleated RBC % PT 36.8 H INR 3.3 H Sodium Potassium Chloride Carbon Dioxide Anion Gap BUN Creatinine Estimated GFR (MDRD) Glucose Calcium Total Bilirubin AST ALT Alkaline Phosphatase Troponin I High Sens 39.4 H* B-Natriuretic Peptide 994 H Total Protein Albumin Globulin Albumin/Globulin Ratio Lipase - Rads (name of study) CXR Radiology: Final report received, EMP read indepedently, See rad report (No acute disease) CT abd/pelv Radiology: Final report received, EMP read indepedently, See rad report (Copious ascites, cirrhotic appearing liver) Ultrasound abdomen Radiology: Final report received, EMP read indepedently, See rad report (Copious ascites with deep pocket in left lower quadrant.) Procedures - Paracentesis Preparation: Consent obtained, Sterile prep and drape, Local anesthesia, Other (Pocket identified by ultrasound, Separately from procedure itself) Location: LLQ Technique: Catheter over needle Fluid: Clear Aftercare: Patient tolerated well, Dressing applied, Bleeding - comment (Brief, short-lived; Mild blood-tinged return initially on access, then remainder of fluid was purely yellow.), Fluid leak - comment (Brief mild fluid leak which self resolved), Other (Initial attempt made in right lower quadrant, which demonstrated easy return of fluid from the syringe, but very positional return from the tubing with ultimately minimal output. The site was ultimately abandoned for the left lower quadrant after ultrasound.) PD MEDICAL DECISION MAKING - ED course Complexity details: reviewed results, re-evaluated patient, considered differential, d/w patient ED course: Patient was evaluated with labs, which were largely unremarkable. Patient did have an initially elevated troponin 45, but repeat was significantly lower at 37. BNP was found to be 900. Chest x-ray was unremarkable. The patient was extremely distended and appeared to have significant ascites, but initially, was not forthcoming about the history of alcohol use until I questioned her further. Her CT scan showed a large amount of ascites with a cirrhotic appearing liver. Paracentesis was performed as above and ultimately yielded 7 L of straw-colored fluid. The patient was found to be breathing much more easily afterward and reported feeling much much better. She remained hemodynamically stable both during the procedure and after. We discussed the need for follow-up to further evaluate her liver. Her liver enzymes here are normal and I do not suspect acute hepatitis at this time. We have discussed the usual indications for return. Departure - Departure Disposition: 01 Home, Self Care Clinical Impression: Ascites Qualifiers: Ascites type: due to alcoholic cirrhosis Qualified Code(s): K70.31 - Alcoholic cirrhosis of liver with ascites Condition: Stable Instructions: Paracentesis Dc, ED Ascites Comments: 7 L of fluid were removed from your abdominal cavity today. On CT scan, your liver appeared to be scarred, consistent with cirrhosis. This could be from the heavy alcohol intake from earlier in your life, but if you are mother had an autoimmune condition which caused her liver to scar, you should talk to your primary doctor about whether this may be a possibility. Your liver labs today are actually normal, so it does not appear that your liver is inflamed. The remainder of your tests look good. Please call to make a follow-up appointment with your primary care physician as soon as possible. Discharge Date/Time: 11/26/21 17:34
[2021-11-26 17:05] VITALS: BP 147/59
== END 2021-11-26 17:34 | disposition home or self-care (01) ==
LOC: ED 11:23
DX: K70.31 Alcoholic cirrhosis of liver with ascites (principal); I48.91 Unspecified atrial fibrillation; I10 Essential (primary) hypertension; E11.9 Type 2 diabetes mellitus without complications; Z79.4 Long term (current) use of insulin; Z79.01 Long term (current) use of anticoagulants
CPT/HCPCS: 36415; 49082; 80053; 83690; 83880; 84484; 85025; 85610; 93005; 99284

== ENCOUNTER 2021-12-18 08:00 | Outpatient (CLI) | payer MEDICARE, OTHER ==
[2021-12-18 15:59] LABS: BILIRUBIN,URINE NEGATIVE (NEGATIVE); GLUCOSE, URINE (UA) >=1000 mg/dL (NEGATIVE); KETONES,URINE (UA) NEGATIVE (NEGATIVE); LEUKOCYTE ESTERASE, URINE NEGATIVE (NEGATIVE); NITRITE,URINE NEGATIVE (NEGATIVE); OCCULT BLOOD,URINE NEGATIVE (NEGATIVE); PH,URINE 5.5 PH (5.0-7.5); PROTEIN,URINE TRACE mg/dL (NEGATIVE); UROBILINOGEN,URINE 0.2 (NORMAL) E.U./dL (NORMAL)
[2021-12-18 16:02] LABS: CLARITY,URINE CLEAR (CLEAR)
[2021-12-18 16:15] LABS: BACTERIA,URINE None Seen /HPF (None Seen); RBC,URINE None Seen /HPF (0-5); SQUAMOUS EPITHELIAL CELL,UR FEW Squamous (<= Few); WBC,URINE 0-3 /HPF (0-5)
== END 2021-12-18 23:59 | disposition home or self-care (01) ==
LOC: LAB.R 08:00
PROVIDERS: ATTEND Internal Medicine
DX: R39.9 Unspecified symptoms and signs involving the genitourinary system (principal)
CPT/HCPCS: 81001; 87086

== ENCOUNTER 2021-12-18 16:04 | Emergency (ER) | payer MEDICARE, OTHER ==
[2021-12-18 16:50] VITALS: BP 140/93
--- NOTE | 2021-12-18 17:12 | ED Physician Documentation ---
History of Present Illness - Stated complaint Stated Complaint: SUTURE REMOVAL - Chief complaint Chief Complaint: Wound - Additonal information Additional information: 71-year-old female here for suture removal from the left side of her abdomen. She underwent paracentesis here in late October. Subsequently developed persistent leak at the site of the paracentesis thus a pursestring suture was placed. Sutures been in for nearly 2 weeks. Subsequently there has been no further drainage. 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 : None HEENT: Dental implants Psych: Depression Musculoskeletal: Osteoarthritis, Gout, Fatigue Derm: None - Past Surgical History Past Surgical History: Yes Ortho: Other Cardiovascular: Cardiac catheterization - Present Medications Home Medications: Ambulatory Orders Medication Instructions Recorded Confirmed Simvastatin 40 mg PO QPM 04/05/15 11/30/21 lisinopriL [Lisinopril] 15 mg PO QPM 07/12/16 11/30/21 metFORMIN [Glucophage] 1,000 mg PO BID 07/12/16 11/30/21 Metoprolol Succinate 50 mg PO DAILY 10/09/17 11/30/21 Rivaroxaban [Xarelto] 20 tab PO QPM 10/09/17 11/30/21 Dulaglutide [Trulicity] 0.75 mg SUBQ OAW 12/01/19 11/30/21 Furosemide 40 mg PO DAILY PRN 04/20/20 11/30/21 Insulin Glargine [Lantus Solostar] 34 unit SQ QPM 04/20/20 11/30/21 Doxycycline Hyclate [Vibramycin] 100 mg PO BID #20 cap 12/03/21 - Allergies Allergies/Adverse Reactions: Allergies Allergy/AdvReac Type Severity Reaction Status Date / Time No Known Drug Allergies Allergy Verified 12/18/21 16:50 - Social History Does the pt smoke?: No Smoking Status: Never smoker Does the pt drink ETOH?: No Does the pt have substance abuse?: No - Immunizations Immunizations are current?: Yes - POLST Patient has POLST: No POLST Status: Full Code PD ED PE EXPANDED - Abdomen Abdomen: Other (Distended abdomen with ascites. Left-sided suture noted. Wound is well-healed without surrounding erythema or drainage. 1 pursestring suture easily removed at bedside.) Results - Vitals Vitals: Vital Signs - 24 hr 12/18/21 16:46 Temperature 36.0 C L Heart Rate 62 Respiratory 16 Rate Blood Pressure 140/93 H O2 Saturation 100 Oxygen O2 Source Room air PD MEDICAL DECISION MAKING - ED course Complexity details: d/w patient, d/w family ED course: Suture removed from the site of recent paracentesis. Wound itself appears well- healed. Patient is continuing to follow-up with primary providers as well as necessary referral to GI or hepatology. Departure - Departure Disposition: 01 Home, Self Care Clinical Impression: Visit for suture removal Comments: Sandra were seen today to have the suture removed on the left side of your ab domen. This was placed after recent paracentesis in which you continue to leak. The wound itself appears well-healed and clean. You can continue your care as usual.
== END 2021-12-18 17:19 | disposition home or self-care (01) ==
LOC: ED 16:04
DX: Z48.02 Encounter for removal of sutures (principal); E11.9 Type 2 diabetes mellitus without complications; Z79.4 Long term (current) use of insulin; R39.9 Unspecified symptoms and signs involving the genitourinary system
CPT/HCPCS: 81001; 87086; 99281

== ENCOUNTER 2022-01-17 11:23 | Outpatient (CLI) | payer MEDICARE, OTHER ==
--- NOTE | 2022-01-20 09:03 | Mammography Report ---
BILATERAL DIGITAL SCREENING MAMMOGRAM 3D/2D: 01/17/2022 CLINICAL: Routine screening. Comparison is made to exams dated: 07/30/2018 mammogram, 07/16/2017 mammogram, and 07/11/2016 mammogram - [facility]. The tissue of both breasts is predominantly fatty. There are stable benign calcifications in both breasts. No significant masses, calcifications, or other findings are seen in either breast. There has been no significant interval change. IMPRESSION: BENIGN There is no mammographic evidence of malignancy. A 1 year screening mammogram is recommended. Based on the Tyrer Cuzick model (a risk assessment model) the patients lifetime risk is 2.4% and her 10 year risk is 1.4%. According to the ACR, ACS, and NCCN guidelines, an annual breast MRI exam eddie g with mammogram is recommended if the patients lifetime risk is 20% or greater. This exam was interpreted at Station ID: [id number]. NOTE: For mammograms, a report in lay terms will be sent to the patient. Approximately 15% of breast malignancies will not be visualized mammographically. In the management of a palpable breast mass, a negative mammogram must not discourage biopsy of a clinically suspicious lesion. Electronically Signed By: Atif Barba acr/penrad:01/17/2022 12:09:17 ACR BI-RADS Category 2: Benign Finding(s) 3342F PARENCHYMAL PATTERN: (F) - The breast(s) demonstrate(s) diffuse fatty replacement. BI-RADS CATEGORY: (2) - 2 RECOMMENDATION: (ANNUAL) - Recommend routine annual screening mammography. [id number] 1 year screening LATERALITY: (B)
== END 2022-01-17 11:24 | disposition home or self-care (01) ==
LOC: DI 11:23
PROVIDERS: ATTEND Internal Medicine
DX: Z12.31 Encounter for screening mammogram for malignant neoplasm of breast (principal)

== ENCOUNTER 2022-03-05 08:22 | Outpatient (CLI) | payer MEDICARE, OTHER ==
[2022-03-05 12:14] LABS: BASOPHILS % (AUTO) 0.6 %; EOSINOPHILS # (AUTO) 0.1 10^3/uL (0.0-0.7); EOSINOPHILS % (AUTO) 2.2 %; HCT - HEMATOCRIT 36.5 % (37.0-47.0); HGB - HEMOGLOBIN 11.7 g/dL (12.0-16.0); LYMPHOCYTES # (AUTO) 0.6 10^3/uL (1.5-3.5); LYMPHOCYTES % (AUTO) 9.3 %; MEAN CORPUSCULAR HEMOGLOBIN 28.5 pg (27.0-31.0); MEAN CORPUSCULAR HGB CONC 32.1 g/dL (32.0-36.0); MEAN CORPUSCULAR VOLUME 88.8 fL (81.0-99.0); MEAN PLATELET VOLUME 10.4 fL (7.9-10.8); MONOCYTES # (AUTO) 0.8 10^3/uL (0.0-1.0); MONOCYTES % (AUTO) 12.2 %; NEUTROPHILS # (AUTO) 4.9 10^3/uL (1.5-6.6); NEUTROPHILS % (AUTO) 75.2 %; PLT - PLATELET COUNT 249 10^3/uL (130-450); RED BLOOD COUNT 4.11 10^6/uL (4.20-5.40); WHITE BLOOD COUNT 6.5 x10^3/uL (4.8-10.8)
[2022-03-05 12:20] LABS: INR 1.3 (0.8-1.2); PT - PROTHROMBIN TIME 14.5 secs (9.9-12.6)
[2022-03-05 12:28] LABS: PARTIAL THROMBOPLASTIN TIME 32.9 secs (24.9-33.3)
[2022-03-05 12:30] LABS: ALBUMIN 3.2 g/dL (3.2-5.5); ALBUMIN/GLOBULIN RATIO 0.7 (1.0-2.2); BILIRUBIN,TOTAL 0.9 mg/dL (0.2-1.0); CALCIUM 9.1 mg/dL (8.5-10.3); CREATININE 1.4 mg/dL (0.4-1.0); POTASSIUM 4.3 mmol/L (3.5-5.0); TOTAL PROTEIN 7.5 g/dL (6.7-8.2)
== END 2022-03-05 08:23 | disposition home or self-care (01) ==
LOC: LAB 08:22
PROVIDERS: ATTEND Internal Medicine
DX: E87.5 Hyperkalemia (principal); R18.8 Other ascites; K74.60 Unspecified cirrhosis of liver; E75.21 Fabry (-Anderson) disease
CPT/HCPCS: 36415; 80053; 85025; 85610; 85730

== ENCOUNTER 2022-03-05 12:11 | Outpatient (CLI) | payer MEDICARE, OTHER ==
[2022-03-05] MEDS ORDERED: lidocaine 1% 20 ML MDV ONE (12:33)
[2022-03-05] MEDS ORDERED: lidocaine 1% 20 ML MDV SUBQ ONE (15:07)
[2022-03-05 15:11] LABS: BF CLARITY HAZY; BF COLOR YELLOW; BF SOURCE PERITONEAL; CC,BF RBC 2000 /mm^3; CC,BF WBC 161 /mm^3
[2022-03-05 15:28] LABS: LYMPHOCYTES %,BODY FLUID 29 %; MACROPHAGES %,BODY FLUID 36 %; MESOTHELIAL %, BF 33 %; MONOCYTES %,BODY FLUID 2 %; NEUTROPHILS %, BF 0 %
--- NOTE | 2022-03-05 21:10 | Ultrasound Report ---
PROCEDURE: Abdominal Paracentesis INDICATIONS: ASCITES TECHNIQUE: The indications, alternatives, benefits, risks, and complications of the procedure were explained to the patient. Written informed consent was obtained and placed in the chart. The abdomen and pelvis were examined sonographically, and an appropriate site was chosen for paracentesis. The skin was pre pared and draped in the usual sterile fashion, and 1% lidocaine was infiltrated from the skin down th rough the peritoneal surface. A 19-gauge catheter-covered needle was then introduced into the perito jhonathan space, the catheter was advanced and the needle was withdrawn, and thereafter peritoneal fluid w as withdrawn. The catheter was then removed and a dressing was applied. The fluid was discarded if the clinician did not order diagnostic testing of the fluid. COMPARISON: None FINDINGS: Access site: Left lower quadrant Needle: One-Step centesis catheter with introducer needle. Fluid volume and description: Cloudy yellow, 4.8 L Fluid sent for diagnostic testing: Yes Medications: 1% lidocaine for local anaesthesia. Complications: None. IMPRESSION: Successful ultrasound-guided paracentesis. Reviewed by: Jduy Goodwin MD on 03/05/2022 9:09 PM PDT Approved by: Judy Goodwin MD on 03/05/2022 9:09 PM PDT Station ID: [id number]
[2022-03-06 17:08] LABS: GLUCOSE BODY FLUID 221 mg/dL (.); LD BODY FLUID 109 IU/L (.)
== END 2022-03-05 12:12 | disposition home or self-care (01) ==
LOC: DI 12:11
PROVIDERS: ATTEND Internal Medicine
DX: R18.8 Other ascites (principal); K74.60 Unspecified cirrhosis of liver; E75.21 Fabry (-Anderson) disease; E87.5 Hyperkalemia
CPT/HCPCS: 36415; 49083; 80053; 81599; 82945; 83615; 84157; 85025; 85610; 85730; 89051

== ENCOUNTER 2022-03-07 12:01 | Emergency (ER) | payer MEDICARE, OTHER ==
[2022-03-07 12:25] VITALS: BP 125/55
--- NOTE | 2022-03-07 12:46 | ED Physician Documentation ---
PD HPI WOUND RECHECK - Stated complaint Stated Complaint: SURGICAL COMPLICATION - Chief complaint Chief Complaint: Wound - Histroy obtained from History obtained from: Patient (She had a paracentesis 2 days ago and complains of persistent fluid leak from the left lower quadrant site.) Review of Systems Constitutional: reports: Reviewed and negative Cardiac: reports: Reviewed and negative Respiratory: reports: Reviewed and negative PD PAST MEDICAL HISTORY - Past Medical History Cardiovascular: Hypertension, High cholesterol, [place], Atrial fibrillation, Murmur, Other Respiratory: Shortness of breath, Sleep apnea Neuro: None Endocrine/Autoimmune: Type 2 diabetes GI: Colon polyps, Hemorrhoids 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 HEENT: Dental implants Psych: Depression Musculoskeletal: Osteoarthritis, Gout, Fatigue Derm: None - Past Surgical History Past Surgical History: Yes Ortho: Other Cardiovascular: Cardiac catheterization - Present Medications Home Medications: Ambulatory Orders Medication Instructions Recorded Confirmed Simvastatin 40 mg PO QPM 04/05/15 02/28/22 metFORMIN [Glucophage] 1,000 mg PO BID 07/12/16 02/28/22 Metoprolol Succinate 25 mg PO DAILY 10/09/17 02/28/22 Rivaroxaban [Xarelto] 20 tab PO QPM 10/09/17 02/28/22 Dulaglutide [Trulicity] 0.75 mg SUBQ OAW 12/01/19 02/28/22 Furosemide 40 mg PO DAILY PRN 04/20/20 02/28/22 Insulin Glargine [Lantus Solostar] 34 unit SQ QPM 04/20/20 02/28/22 Ciprofloxacin HCl 1 tablet PO BID 7 Days #14 tablet 03/04/22 - Allergies Allergies/Adverse Reactions: Allergies Allergy/AdvReac Type Severity Reaction Status Date / Time No Known Drug Allergies Allergy Verified 03/07/22 12:26 - Social History Does the pt smoke?: No Smoking Status: Never smoker Does the pt drink ETOH?: No Does the pt have substance abuse?: No - Immunizations Immunizations are current?: Yes - POLST Patient has POLST: No POLST Status: Full Code PD ED PE NORMAL - Vitals Vital signs reviewed: Yes - General General: Alert and oriented X 3, No acute distress - Abdomen Abdomen: Non tender, Other (There is a ascites leak from a paracentesis site in the left lower quadrant with clear fluid.) - Neuro Neuro: Alert and oriented X 3, Normal speech - Psych Psych: Normal mood, Normal affect Results - Vitals Vitals: Vital Signs - 24 hr 03/07/22 12:21 Temperature 36.3 C L Heart Rate 61 Respiratory 24 Rate Blood Pressure 125/55 L O2 Saturation 100 Oxygen O2 Source Room air Procedures - Laceration (location) LLQ abd wall Length in cm: 1 Wound type: Linear (After discussion of risks and benefits she would like to go ahead with suturing. She has had to have this done before.) Anesthesia: Lidocaine 1% Wound preparation: Chlorhexadine Skin layer closure: Nylon, Other (1 [id number] 4-0 suture and 1 simple interrupted suture) Other: Patient tolerated well, No complications, Neurovascular intact Departure - Departure Disposition: 01 Home, Self Care Clinical Impression: Ascites Condition: Good Record reviewed to determine appropriate education?: Yes Instructions: Paracentesis Dc Comments: Come back for any signs of infection which would include: Redness, swelling, drainage, increased pain, or fevers. You can wash it soap and water. Keep it covered With a dry bandage Follow-up with your physician in 10-14 days for suture removal.
== END 2022-03-07 12:55 | disposition home or self-care (01) ==
LOC: ED 12:01
DX: L76.82 Other postprocedural complications of skin and subcutaneous tissue (principal); R18.8 Other ascites
CPT/HCPCS: 12001; 99281

== ENCOUNTER 2022-03-18 12:33 | Outpatient (CLI) | payer MEDICARE, OTHER | END 2022-03-18 12:34 | disposition home or self-care (01) | LOC: DI 12:33 | PROVIDERS: ATTEND Internal Medicine Cardiovascular Disease | DX: I50.20 Unspecified systolic (congestive) heart failure (principal); I08.1 Rheumatic disorders of both mitral and tricuspid valves; I48.91 Unspecified atrial fibrillation | CPT/HCPCS: 93306 ==

== ENCOUNTER 2022-03-21 14:22 | Emergency (ER) | payer MEDICARE, OTHER ==
[2022-03-21 14:31] VITALS: BP 128/60
--- NOTE | 2022-03-21 14:37 | ED Physician Documentation ---
PD HPI SKIN - Stated complaint Stated Complaint: STITCH REMOVAL - Chief complaint Chief Complaint: Laceration - History obtained from History obtained from: Patient - Additional information Additional information: The patient comes to the emergency department chief complaint of wound check and needing suture removal. The patient had a paracentesis which was just having trouble healing and so 2 stewed sutures were placed. Patient states that the sutures have been in about 10 days. She has had no further leakage of fluid from the wound and states there has been no redness or pain. Patient has a history of end-stage liver disease with chronic ascites buildup and is scheduled for another paracentesis in a week. No other complaints at this time. Review of Systems Ten Systems: 10 systems reviewed and negative Constitutional: reports: Reviewed and negative Eyes: reports: Reviewed and negative Ears: reports: Reviewed and negative Nose: reports: Reviewed and negative Throat: reports: Reviewed and negative Cardiac: reports: Reviewed and negative Respiratory: reports: Reviewed and negative GI: reports: Reviewed and negative : reports: Reviewed and negative Skin: reports: Reviewed and negative Musculoskeletal: reports: Reviewed and negative Neurologic: reports: Reviewed and negative Psychiatric: reports: Reviewed and negative Endocrine: reports: Reviewed and negative Immunocompromised: reports: Reviewed and negative PD PAST MEDICAL HISTORY - Past Medical History Cardiovascular: Hypertension, High cholesterol, [place], Atrial fibrillation, Murmur, Other Respiratory: Shortness of breath, Sleep apnea Neuro: None Endocrine/Autoimmune: Type 2 diabetes GI: Colon polyps, Hemorrhoids 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 HEENT: Dental implants Psych: Depression Musculoskeletal: Osteoarthritis, Gout, Fatigue Derm: None - Past Surgical History Past Surgical History: Yes Ortho: Other Cardiovascular: Cardiac catheterization - Present Medications Home Medications: Ambulatory Orders Medication Instructions Recorded Confirmed Simvastatin 40 mg PO QPM 04/05/15 02/28/22 metFORMIN [Glucophage] 1,000 mg PO BID 07/12/16 02/28/22 Metoprolol Succinate 25 mg PO DAILY 10/09/17 02/28/22 Rivaroxaban [Xarelto] 20 tab PO QPM 10/09/17 02/28/22 Dulaglutide [Trulicity] 0.75 mg SUBQ OAW 12/01/19 02/28/22 Furosemide 40 mg PO DAILY PRN 04/20/20 02/28/22 Insulin Glargine [Lantus Solostar] 34 unit SQ QPM 04/20/20 02/28/22 Ciprofloxacin HCl 1 tablet PO BID 7 Days #14 tablet 03/04/22 - Allergies Allergies/Adverse Reactions: Allergies Allergy/AdvReac Type Severity Reaction Status Date / Time No Known Drug Allergies Allergy Verified 03/21/22 14:27 - Social History Does the pt smoke?: No Smoking Status: Never smoker Does the pt drink ETOH?: No Does the pt have substance abuse?: No - Immunizations Immunizations are current?: Yes - POLST Patient has POLST: No POLST Status: Full Code PD ED PE NORMAL - Vitals Vital signs reviewed: Yes - General General: Alert and oriented X 3, No acute distress, Well developed/nourished - HEENT HEENT: Atraumatic, PERRL, EOMI, Moist mucous membranes - Neck Neck: Supple, no meningeal sign - Respiratory Respiratory: No respiratory distress - Abdomen Abdomen: Soft, Non tender, Other (Distended, ascitic appearing abdomen) - Derm Derm: Normal color, Warm and dry, Other (7 mm laceration with well-healed, nonerythematous, clean dry and intact, with [address] - Extremities Extremities: No deformity - Neuro Neuro: Alert and oriented X 3, Other (Grossly normal) - Psych Psych: Normal mood, Normal affect Results - Vitals Vitals: Vital Signs - 24 hr 03/21/22 14:27 Temperature 36.5 C Heart Rate 60 Respiratory 16 Rate Blood Pressure 128/60 O2 Saturation 100 Oxygen O2 Source Room air PD MEDICAL DECISION MAKING - ED course Complexity details: reviewed results, considered differential, d/w patient ED course: The sutures were removed without difficulty and integrity of wound did hold. Discussed with the patient wound care and the usual indications for return. Departure - Departure Disposition: 01 Home, Self Care Clinical Impression: Visit for suture removal Condition: Stable Instructions: ED Laceration All Comments: Your wound looks great. You may leave it open to air. If you develop any redness over the wound or it splits apart and looks "mushy" please get the wound rechecked.
== END 2022-03-21 14:38 | disposition home or self-care (01) ==
LOC: ED 14:22
DX: Z48.02 Encounter for removal of sutures (principal)
CPT/HCPCS: 99281

== ENCOUNTER 2022-03-28 11:39 | Outpatient (CLI) | payer MEDICARE, OTHER ==
[2022-03-28 12:03] LABS: ALBUMIN 3.3 g/dL (3.2-5.5); ALBUMIN/GLOBULIN RATIO 0.8 (1.0-2.2); BILIRUBIN,TOTAL 0.7 mg/dL (0.2-1.0); CREATININE 1.3 mg/dL (0.4-1.0); POTASSIUM 4.4 mmol/L (3.5-5.0); TOTAL PROTEIN 7.3 g/dL (6.7-8.2)
== END 2022-03-28 11:40 | disposition home or self-care (01) ==
LOC: LAB 11:39
PROVIDERS: ATTEND Internal Medicine Cardiovascular Disease
DX: I50.9 Heart failure, unspecified (principal)
CPT/HCPCS: 36415; 80053

== ENCOUNTER 2022-04-24 10:40 | Outpatient (CLI) | payer MEDICARE, OTHER ==
--- NOTE | 2022-04-24 14:38 | Ultrasound Report ---
PROCEDURE: Abdomen Complete INDICATIONS: ASCITES TECHNIQUE: Real-time scanning was performed of the abdominal and retroperitoneal organs, with image documentatio n. COMPARISON: 03/05/2022 and 11/26/2021. FINDINGS: Liver: Liver is normal in size and heterogeneous in echotexture. Nodular liver contour is noted. No discrete hepatic lesion. Gallbladder: There is a stone seen within dependent portion of gallbladder lumen. No gallbladder wall thickening or pericholecystic fluid. No sonographic Hall's sign. Biliary ducts: Intrahepatic bile ducts are non-dilated. Extrahepatic bile duct caliber measures 3.1 mm. Normal is 6-7 mm or less in diameter, or 10 mm or less post-cholecystectomy. Pancreas: Visualized portions of the pancreas are sonographically normal. Spleen: Spleen is normal in size and homogeneous in echotexture. Kidneys: Kidneys are normal in size and echotexture. Right kidney measures 11.3 cm long; left kidne y measures 9.6 cm long. No hydronephrosis or nephrolithiasis. No solid masses. Simple appearing cy st in the upper pole right kidney is seen measures 1.5 x 1.7 x 1.8 cm in size. Aorta: Visualized aorta is normal in caliber at less than 3 cm. Iliacs: Not well seen. IVC: Intrahepatic inferior vena cava is patent. Miscellaneous: Ascites fluid is seen in all 4 quadrants of abdomen with the largest pocket seen in ri ght lower quadrant. IMPRESSION: 1. Small to moderate amount of ascites fluid. 2. Nodular liver contour with heterogeneous liver parenchymal echotexture suggestive of cirrhosis. 3. Cholelithiasis without sonographic evidence of acute cholecystitis. No biliary ductal dilatation. 4. Right renal cyst as above. No hydronephrosis. Reviewed by: Aristides Gilbert MD on 04/24/2022 2:36 PM PDT Approved by: Aristides Gilbert MD on 04/24/2022 2:36 PM PDT Station ID: [id number]
== END 2022-04-24 10:41 | disposition home or self-care (01) ==
LOC: DI 10:40
PROVIDERS: ATTEND Internal Medicine
DX: R18.8 Other ascites (principal); R93.2 Abnormal findings on diagnostic imaging of liver and biliary tract

== ENCOUNTER 2022-07-11 09:47 | Outpatient (CLI) | payer MEDICARE, OTHER ==
[~2022-07-11 09:47] MED LIST: LIDOCAINE-MPF 1% 5 ML VIAL ONE
[2022-07-11] MEDS ORDERED: LIDOCAINE-MPF 1% 5 ML VIAL SUBQ ONE (15:07)
--- NOTE | 2022-07-11 17:12 | Ultrasound Report ---
PROCEDURE: Abdominal Paracentesis INDICATIONS: ASCITES TECHNIQUE: The indications, alternatives, benefits, risks, and complications of the procedure were explained to the patient. Written informed consent was obtained and placed in the chart. The abdomen and pelvis were examined sonographically, and an appropriate site was chosen for paracentesis. The skin was pre pared and draped in the usual sterile fashion, and 1% lidocaine was infiltrated from the skin down th rough the peritoneal surface. A 19-gauge catheter-covered needle was then introduced into the perito jhonathan space, the catheter was advanced and the needle was withdrawn, and thereafter peritoneal fluid w as withdrawn. The catheter was then removed and a dressing was applied. The fluid was discarded if the clinician did not order diagnostic testing of the fluid. COMPARISON: 04/24/2020. FINDINGS: Access site: Left lower quadrant abdomen. Needle: One-Step centesis catheter with introducer needle. Fluid volume and description: 5.9 L of clear yellow fluid. Fluid sent for diagnostic testing: None Medications: 1% lidocaine for local anaesthesia. Complications: None. IMPRESSION: Technically successful ultrasound-guided paracentesis. Reviewed by: Aristides Gilbert MD on 07/11/2022 5:11 PM PST Approved by: Aristides Gilbert MD on 07/11/2022 5:11 PM PST Station ID: [id number]
== END 2022-07-11 09:48 | disposition home or self-care (01) ==
LOC: DI 09:47
PROVIDERS: ATTEND Internal Medicine
DX: R18.8 Other ascites (principal)
CPT/HCPCS: 49083

== ENCOUNTER 2022-11-06 09:04 | Outpatient (CLI) | payer MEDICARE, OTHER | END 2022-11-06 09:05 | disposition home or self-care (01) | LOC: RT 09:04 | PROVIDERS: ATTEND Internal Medicine Cardiovascular Disease | DX: I11.0 Hypertensive heart disease with heart failure (principal); I50.9 Heart failure, unspecified | CPT/HCPCS: 36415; 80053; 83735; 83880; 85025; 93005 ==

== ENCOUNTER 2022-11-20 06:11 | Day surgery (SDC) | payer MEDICARE, OTHER ==
[~2022-11-20 06:11] MED LIST changes: +CYCLOPENTOLATE 1% OPHTH DROPS 2 ML ONE; +KETOROLAC 0.45% OPHTH DROPS ONE; -LIDOCAINE-MPF 1% 5 ML VIAL ONE; +PHENYLEPHRINE 2.5% OPHTH 2 ML DROPS ONE; +PROPARACAINE 0.5% OPHTH DROPS 15 ML ONE
[2022-11-20] MEDS ORDERED: LACTATED RINGERS 1,000 ML IV ONE (06:20)
[2022-11-20 06:32] VITALS: BP 114/50
--- NOTE | 2022-11-20 06:55 | ANESTHESIA ---
Pre-Anesthesia VS, & Labs - Diagnosis R nuclear cataract - Procedure R extraction cataract wIOL Vital Signs: Temp Pulse Resp BP Pulse Ox O2 Flow Rate 36 C L 60 18 114/50 L 100 11/20/22 06:31 11/20/22 06:31 11/20/22 06:31 11/20/22 06:31 11/20/22 06:31 Height: 5 ft 1 in Weight (kg): 72 kg Body Mass Index: 29.9 BMI Classification: Overweight - NPO >8 hours - Is Patient ?: No - Lab Results Current Lab Results: Laboratory Tests 11/20/22 06:43: POC Whole Bld Glucose 554 H* Lab results reviewed: Yes Home Medications and Allergies Simvastatin 40 mg PO QPM 04/05/15 metFORMIN [Glucophage] 1,000 mg PO BID 07/12/16 Metoprolol Succinate 25 mg PO DAILY 10/09/17 Rivaroxaban [Xarelto] 20 tab PO QPM 10/09/17 Dulaglutide [Trulicity] 0.75 mg SUBQ OAW 12/01/19 Insulin Glargine [Lantus Solostar] 34 unit SQ QPM 04/20/20 Torsemide 100 mg PO DAILY 04/03/22 Allergies/Adverse Reactions: Allergies Allergy/AdvReac Type Severity Reaction Status Date / Time No Known Drug Allergies Allergy Verified 04/17/22 16:35 Anes History & Medical History - Anesthetic History Anesthesia Complications: reports: No previous complications Family history of Anesthesia Complications: Denies Family history of Malignant Hyperthermia: Denies - Medical History Cardiovascular: reports: Hypertension, High cholesterol, [place], Atrial fibrillation, Murmur, Other Pulmonary: reports: Shortness of breath, Sleep apnea Gastrointestinal: reports: Colon polyps, Hemorrhoids Urinary: reports: None Neuro: reports: None Musculoskeletal: reports: Osteoarthritis, Gout, Fatigue Endocrine/Autoimmune: reports: Type 2 diabetes Blood Disorders: reports: None Skin: reports: None Smoking Status: Never smoker History of Cancer?: No - Surgical History General: reports: Colonoscopy Cardiothoracic: reports: Cardiac catheterization Orthopedic: reports: Other Exam General: Alert, Oriented x3, Cooperative Dental: WNL Mouth Openin Fingerbreadth Neck Mobility: Normal Mallampati classification: II Respiratory: Decreased breath sounds Neurological: Normal speech Mental/Cognitive Status: Alert/Oriented X3, Normal for patient Cognitive Status: Within normal limits Plan Anesthesia Type: MAC Consent for Procedure(s) Verified and Reviewed: Yes Code Status: Attempt Resuscitation ASA classification: 3-Severe systemic disease Is this case an emergency?: No
[2022-11-20] MEDS ORDERED: BRIMONIDINE 0.2% OPHTH DROPS 5 ML ONE (07:04)
[2022-11-20] MEDS ORDERED: EPINEPHrine 1 MG/ML AMP ONE (07:04)
[2022-11-20] MEDS ORDERED: TRIAMCIN/MOXIFLOX OPHTHALMIC 0.6 ML VIAL IO ONE ×2 (07:04→07:06)
[2022-11-20] MEDS ORDERED: BSS/LIDOCAINE/EPINEPHRINE 1 ML VIAL ONE (07:05)
[2022-11-20] MEDS ORDERED: TIMOLOL 0.5% OPHTH DROPS ONE (07:05)
[2022-11-20] MEDS ORDERED: VANCOMYCIN OPHTH (TOPICAL) 10 MG/ML SYRINGE ONE (07:05)
== END 2022-11-20 06:12 | disposition home or self-care (01) ==
LOC: SDS 06:11
PROVIDERS: ATTEND Ophthalmology
DX: Z53.09 Procedure and treatment not carried out because of other contraindication (principal)
CPT/HCPCS: 36415; 80053; 82009; 83036; 83690; 85025; A9270; J1815; J3490; J7120

== ENCOUNTER 2022-11-20 17:22 | Emergency (ER) | payer MEDICARE, OTHER ==
[2022-11-20] MEDS ORDERED: SODIUM CHLORIDE 0.9% 1,000 ML IV STA (17:25)
--- NOTE | 2022-11-20 18:06 | ED Physician Documentation ---
History of Present Illness - Stated complaint Stated Complaint: HIGH BLOOD SUGAR - Chief complaint Chief Complaint: General - History obtained from History obtained from: Patient, Family - Additonal information Additional information: The patient is brought to the emergency department by her daughter for chief complaint of high blood sugar. The patient was supposed get cataract surgery this morning but when she got there, her blood sugar was found to be over 500. The patient states that for some time, she has been feeling somewhat fatigued and like she is in a "brain fog". The patient is supposed to be on metformin, Trulicity, and Lantus, but daughter states she is not sure how much or how correctly the patient has been taking her meds. She states that she used to live with the patient and the patient's before her and that there were some issues with the patient taking her meds properly then too. The patient has not been having any polyuria. She has a history of some kidney disease related to her diabetes but does still make urine. The patient was found to have all insulin, supplies, and glucometer strips, And the daughter is concerned about this as well. Patient has an upcoming appointment with her primary care physician Dr. Rubio on November 27 but in the meantime, daughter was hoping to get the patient's insulin and glucose strips refilled. The patient was given a dose of her insulin and metformin upon arrival at home after going to her surgical appointment. The patient was very tired and slept for 8 hours and the daughter woke her up to eat after this. She felt the patient should come to the ED for an evaluation since her blood sugar had been running so high. No other complaints at this time. PD PAST MEDICAL HISTORY - Past Medical History Cardiovascular: Hypertension, High cholesterol, [place], Atrial fibrillation, Murmur, Other Respiratory: Shortness of breath, Sleep apnea Neuro: None Endocrine/Autoimmune: Type 2 diabetes GI: Colon polyps, Hemorrhoids W[employer]: None : None HEENT: Dental implants Psych: Depression Musculoskeletal: Osteoarthritis, Gout, Fatigue Derm: None - Past Surgical History Past Surgical History: Yes Ortho: Other Cardiovascular: Cardiac catheterization - Present Medications Home Medications: Ambulatory Orders Medication Instructions Recorded Confirmed Simvastatin 40 mg PO QPM 04/05/15 11/20/22 metFORMIN [Glucophage] 1,000 mg PO BID 07/12/16 11/20/22 Rivaroxaban [Xarelto] 20 tab PO QPM 10/09/17 11/20/22 Dulaglutide [Trulicity] 0.75 mg SUBQ OAW 12/01/19 11/20/22 Torsemide 100 mg PO DAILY 04/03/22 11/20/22 Dulaglutide [Trulicity] 0.75 mg SQ OAW #2 applic 11/20/22 Insulin Glargine [Lantus Solostar] 34 unit SQ QPM #2 applic 11/20/22 Metoprolol Succinate [Toprol Xl] 50 mg PO DAILY 11/20/22 11/20/22 Potassium Chloride [Klor-Con 10] 10 meq PO DAILY 11/20/22 11/20/22 Spironolactone [Aldactone] 25 mg PO DAILY 11/20/22 11/20/22 Torsemide 100 mg PO DAILY 11/20/22 11/20/22 - Allergies Allergies/Adverse Reactions: Allergies Allergy/AdvReac Type Severity Reaction Status Date / Time No Known Drug Allergies Allergy Verified 11/20/22 17:37 - Social History Does the pt smoke?: No Smoking Status: Never smoker Does the pt drink ETOH?: No Does the pt have substance abuse?: No - Immunizations Immunizations are current?: Yes - POLST Patient has POLST: No POLST Status: Full Code PD ED PE NORMAL - Vitals Vital signs reviewed: Yes - General General: No acute distress, Well developed/nourished, Other (The patient is alert and answers questions appropriately.) - HEENT HEENT: Atraumatic, PERRL, EOMI, Moist mucous membranes - Neck Neck: Supple, no meningeal sign - Cardiac Cardiac: RRR, No murmur, Strong equal pulses - Respiratory Respiratory: No respiratory distress, Clear bilaterally - Abdomen Abdomen: Soft, Non tender, Non distended - Derm Derm: Normal color, Warm and dry, No rash - Extremities Extremities: No deformity, No edema - Neuro Neuro: Alert and oriented X 3, No motor deficit, No sensory deficit - Psych Psych: Normal mood, Normal affect Results - Vitals Vitals: Oxygen O2 Source Room air - Labs Labs: Laboratory Tests 11/20/22 11/20/22 11/20/22 17:55 17:55 18:20 WBC 5.5 RBC 4.81 Hgb 14.6 Hct 42.2 MCV 87.7 MCH 30.4 MCHC 34.6 RDW 13.9 Plt Count 232 MPV 11.8 H Neut # (Auto) 3.5 Lymph # (Auto) 1.1 L [place] # (Auto) 0.8 Eos # (Auto) 0.1 Baso # (Auto) 0.1 Absolute Nucleated RBC 0.00 Nucleated RBC % 0.0 Sodium 128 L Potassium 3.9 Chloride 80 L* Carbon Dioxide 30 Anion Gap 18.0 H BUN 72 H Creatinine 1.8 H Estimated GFR (MDRD) 28 L Glucose 468 H POC Whole Bld Glucose Estimat Average Glucose 392 H Hemoglobin A1c % 15.3 H Calcium 9.4 Total Bilirubin 1.5 H AST 28 ALT 16 Alkaline Phosphatase 145 H Total Protein 7.5 Albumin 3.4 Globulin 4.1 Albumin/Globulin Ratio 0.8 L Lipase 100 H Serum Ketones NEGATIVE 11/20/22 11/20/22 19:20 20:16 WBC RBC Hgb Hct MCV MCH MCHC RDW Plt Count MPV Neut # (Auto) Lymph # (Auto) [place] # (Auto) Eos # (Auto) Baso # (Auto) Absolute Nucleated RBC Nucleated RBC % Sodium Potassium Chloride Carbon Dioxide Anion Gap BUN Creatinine Estimated GFR (MDRD) Glucose POC Whole Bld Glucose 447 H 275 H Estimat Average Glucose Hemoglobin A1c % Calcium Total Bilirubin AST ALT Alkaline Phosphatase Total Protein Albumin Globulin Albumin/Globulin Ratio Lipase Serum Ketones PD Medical Decision Making - ED course Complexity details: reviewed results, re-evaluated patient, considered differential, d/w patient, d/w family ED course: Patient was worked up with labs including CBC and ER abdominal panel, which were reviewed by me and showed a blood sugar of 468. The patient was given IV fluids and 12 units of insulin IV after which her blood sugar did come down somewhat to 431. The patient was still finishing IV fluids and I did sign her out to the oncoming emergency physician Dr. Cote, pending further improvement in her blood glucose. Departure - Departure Disposition: 01 Home, Self Care Clinical Impression: Dehydration Diabetes type 2, uncontrolled Qualifiers: Glycemic state: with hyperglycemia Qualified Code(s): E11.65 - Type 2 diabetes mellitus with hyperglycemia Condition: Stable Instructions: ED Hyperglycemia Diabetic, ED Dehydration Prescriptions: Insulin Glargine [Lantus Solostar] 34 unit SQ QPM #2 applic Dulaglutide [Trulicity] 0.75 mg SQ OAW #2 applic Comments: Your blood sugar was elevated in the emergency department today at 468. You did show some signs of slowing of your kidneys and were also dehydrated. You been given IV fluids in the emergency department for this and you have also been treated with insulin to get your sugar down. Prescriptions for Trulicity and your Lantus have been electronically transmitted to the [facility] pharmacy in [place]. Please get back on your medications right away and take them as directed. Please follow-up with Dr. Rubio as planned on November 27. Discharge Date/Time: 11/20/22 20:55
[2022-11-20 18:10] LABS: BASOPHILS # (AUTO) 0.1 10^3/uL (0.0-0.1); BASOPHILS % (AUTO) 0.9 %; EOSINOPHILS # (AUTO) 0.1 10^3/uL (0.0-0.7); EOSINOPHILS % (AUTO) 2.4 %; HCT - HEMATOCRIT 42.2 % (37.0-47.0); HGB - HEMOGLOBIN 14.6 g/dL (12.0-16.0); LYMPHOCYTES # (AUTO) 1.1 10^3/uL (1.5-3.5); LYMPHOCYTES % (AUTO) 19.5 %; MEAN CORPUSCULAR HEMOGLOBIN 30.4 pg (27.0-31.0); MEAN CORPUSCULAR HGB CONC 34.6 g/dL (32.0-36.0); MEAN CORPUSCULAR VOLUME 87.7 fL (81.0-99.0); MEAN PLATELET VOLUME 11.8 fL (7.9-10.8); MONOCYTES # (AUTO) 0.8 10^3/uL (0.0-1.0); MONOCYTES % (AUTO) 13.6 %; NEUTROPHILS # (AUTO) 3.5 10^3/uL (1.5-6.6); NEUTROPHILS % (AUTO) 63.2 %; PLT - PLATELET COUNT 232 10^3/uL (130-450); RED BLOOD COUNT 4.81 10^6/uL (4.20-5.40); RED CELL DISTRIBUTION WIDTH 13.9 % (12.0-15.0); WHITE BLOOD COUNT 5.5 x10^3/uL (4.8-10.8)
[2022-11-20 18:28] LABS: KETONES, SERUM (ACETEST) NEGATIVE (NEGATIVE)
[2022-11-20 18:36] LABS: ALBUMIN 3.4 g/dL (3.2-5.5); ALBUMIN/GLOBULIN RATIO 0.8 (1.0-2.2); ALKALINE PHOSPHATASE 145 IU/L (42-121); ALT ALANINE AMINOTRANSFERASE 16 IU/L (10-60); AST ASPARTATE AMINOTRANSFERASE 28 IU/L (10-42); BILIRUBIN,TOTAL 1.5 mg/dL (0.2-1.0); BUN - BLOOD UREA NITROGEN 72 mg/dL (6-20); CALCIUM 9.4 mg/dL (8.5-10.3); CARBON DIOXIDE - CO2 30 mmol/L (21-32); CREATININE 1.8 mg/dL (0.4-1.0); GFR - MDRD 28 (>89); GLUCOSE 468 mg/dL (70-100); LIPASE 100 U/L (22-51); POTASSIUM 3.9 mmol/L (3.5-5.0); SODIUM 128 mmol/L (135-145); TOTAL PROTEIN 7.5 g/dL (6.7-8.2)
[2022-11-20] MEDS ORDERED: INSULIN REGULAR HUMAN 300 UNIT/3 ML VIAL IVP STA ×2 (18:38→19:24)
[2022-11-20 18:48] LABS: CHLORIDE 80 mmol/L (101-111)
--- NOTE | 2022-11-20 20:34 | ED Physician Documentation ---
ED Addendum - Addendum Addendum: 11/20/22 20:33 Patient endorsed to me by Dr. Templeton awaiting repeat fingerstick. She was still hyperglycemic on repeat fingerstick therefore 24 units of regular insulin was ordered and now she has improved glucose in the 200s and is requesting to go home. Disposition Home condition stable Impression 1 diabetes mellitus 2 hyperglycemia
[2022-11-20 20:37] LABS: ESTIMATED AVERAGE GLUCOSE 392 mg/dL (70-100); HEMOGLOBIN A1c% 15.3 % (4.27-6.07)
[2022-11-20 20:56] VITALS: BP 133/70
== END 2022-11-20 20:55 | disposition home or self-care (01) ==
LOC: ED 17:22
DX: E11.65 Type 2 diabetes mellitus with hyperglycemia (principal); E86.0 Dehydration; E11.22 Type 2 diabetes mellitus with diabetic chronic kidney disease; Z79.4 Long term (current) use of insulin; Z79.84 Long term (current) use of oral hypoglycemic drugs; Z79.85 Long-term (current) use of injectable non-insulin antidiabetic drugs
CPT/HCPCS: 36415; 80053; 82009; 83036; 83690; 85025

== ENCOUNTER 2022-12-17 10:08 | Outpatient (CLI) | payer MEDICARE, OTHER ==
[2022-12-17 10:36] LABS: ESTIMATED AVERAGE GLUCOSE 346 mg/dL (70-100); HEMOGLOBIN A1c% 13.7 % (4.27-6.07)
[2022-12-17 10:40] LABS: CALCIUM 8.9 mg/dL (8.5-10.3); CREATININE 1.4 mg/dL (0.4-1.0); MAGNESIUM 2.6 mg/dL (1.7-2.8); POTASSIUM 4.7 mmol/L (3.5-5.0)
== END 2022-12-17 10:09 | disposition home or self-care (01) ==
LOC: LAB 10:08
PROVIDERS: ATTEND Internal Medicine Cardiovascular Disease
DX: E11.9 Type 2 diabetes mellitus without complications (principal); Z79.899 Other long term (current) drug therapy; I48.0 Paroxysmal atrial fibrillation
CPT/HCPCS: 36415; 80048; 83036; 83735; 83880

== ENCOUNTER 2023-01-12 11:30 | Outpatient (CLI) | payer MEDICARE, OTHER ==
[2023-01-12 11:43] LABS: BASOPHILS # (AUTO) 0.1 10^3/uL (0.0-0.1); EOSINOPHILS # (AUTO) 0.1 10^3/uL (0.0-0.7); EOSINOPHILS % (AUTO) 2.5 %; HCT - HEMATOCRIT 35.7 % (37.0-47.0); HGB - HEMOGLOBIN 11.6 g/dL (12.0-16.0); LYMPHOCYTES # (AUTO) 0.7 10^3/uL (1.5-3.5); LYMPHOCYTES % (AUTO) 14.3 %; MEAN CORPUSCULAR HEMOGLOBIN 30.7 pg (27.0-31.0); MEAN CORPUSCULAR HGB CONC 32.5 g/dL (32.0-36.0); MEAN CORPUSCULAR VOLUME 94.4 fL (81.0-99.0); MEAN PLATELET VOLUME 10.1 fL (7.9-10.8); MONOCYTES # (AUTO) 0.7 10^3/uL (0.0-1.0); MONOCYTES % (AUTO) 12.9 %; NEUTROPHILS # (AUTO) 3.5 10^3/uL (1.5-6.6); NEUTROPHILS % (AUTO) 68.7 %; PLT - PLATELET COUNT 213 10^3/uL (130-450); RED BLOOD COUNT 3.78 10^6/uL (4.20-5.40); RED CELL DISTRIBUTION WIDTH 17.6 % (12.0-15.0); WHITE BLOOD COUNT 5.1 x10^3/uL (4.8-10.8)
[2023-01-12 12:17] LABS: ALBUMIN 3.6 g/dL (3.2-5.5); CALCIUM 9.8 mg/dL (8.5-10.3); CREATININE 1.4 mg/dL (0.4-1.0); POTASSIUM 4.6 mmol/L (3.5-5.0)
[2023-01-12 12:20] LABS: PROTEIN/CREATININE RATIO,URINE 0.3 (<=0.2)
== END 2023-01-12 11:31 | disposition home or self-care (01) ==
LOC: LAB 11:30
PROVIDERS: ATTEND Internal Medicine Nephrology
DX: E11.9 Type 2 diabetes mellitus without complications (principal); N05.9 Unspecified nephritic syndrome with unspecified morphologic changes; R80.9 Proteinuria, unspecified; D70.9 Neutropenia, unspecified; D63.1 Anemia in chronic kidney disease
CPT/HCPCS: 36415; 80048; 82040; 82570; 84156; 85025

== ENCOUNTER 2023-05-04 13:43 | Outpatient (CLI) | payer MEDICARE, OTHER ==
[2023-05-04 14:39] LABS: CALCIUM 9.4 mg/dL (8.5-10.3); CREATININE 1.4 mg/dL (0.6-1.3); POTASSIUM 4.9 mmol/L (3.5-4.5)
== END 2023-05-04 13:44 | disposition home or self-care (01) ==
LOC: LAB 13:43
PROVIDERS: ATTEND Internal Medicine Nephrology
DX: E11.9 Type 2 diabetes mellitus without complications (principal); N05.9 Unspecified nephritic syndrome with unspecified morphologic changes; R80.9 Proteinuria, unspecified
CPT/HCPCS: 36415; 80048; 82570; 84156

== ENCOUNTER 2023-05-05 12:06 | Outpatient (CLI) | payer MEDICARE, OTHER ==
[2023-05-05 12:57] LABS: CREATININE,URINE 64.7 mg/dL; PROTEIN/CREATININE RATIO,URINE 0.5 (<=0.2)
== END 2023-05-05 12:07 | disposition home or self-care (01) ==
LOC: LAB.R 12:06
PROVIDERS: ATTEND Internal Medicine Nephrology
DX: R80.9 Proteinuria, unspecified (principal)
CPT/HCPCS: 82570; 84156

== ENCOUNTER 2023-07-27 12:45 | Outpatient (CLI) | payer MEDICARE, OTHER ==
--- NOTE | 2023-07-28 11:57 | Mammography Report ---
BILATERAL DIGITAL SCREENING MAMMOGRAM 3D/2D: 07/27/2023 CLINICAL: Routine screening. Comparison is made to exams dated: 01/17/2022 mammogram - [facility], 07/30/2018 mamm ogram, 07/16/2017 mammogram, and 07/11/2016 mammogram - [facility]. There are scattered areas of fibroglandular density in both breasts (category b / 25%-50% glandular t issue). There are benign calcifications in both breasts. There also are benign vascular calcifications in th e left breast. No significant masses, calcifications, or other findings are seen in either breast. There has been no significant interval change. IMPRESSION: BENIGN There is no mammographic evidence of malignancy. A 1 year screening mammogram is recommended. Based on the Tyrer Cuzick model (a risk assessment model) the patient's lifetime risk is 3.5% and her 10 year risk is 2.2%. According to the ACR, ACS, and NCCN guidelines, an annual breast MRI exam eddie g with mammogram is recommended if the patients lifetime risk is 20% or greater. This exam was interpreted at Station ID: [id number]. NOTE: For mammograms, a report in lay terms will be sent to the patient. Approximately 15% of breast malignancies will not be visualized mammographically. In the management of a palpable breast mass, a negative mammogram must not discourage biopsy of a clinically suspicious lesion. Electronically Signed By: Renee zaidi/akiko:07/27/2023 15:28:25 ACR BI-RADS Category 2: Benign Finding(s) 3342F PARENCHYMAL PATTERN: (A) - The breast(s) demonstrate(s) scattered fibroglandular densities. BI-RADS CATEGORY: (2) - 2 Mammogram [id number] 1 year screening LATERALITY: (B)
== END 2023-07-27 12:46 | disposition home or self-care (01) ==
LOC: DI 12:45
PROVIDERS: ATTEND Internal Medicine
DX: Z12.31 Encounter for screening mammogram for malignant neoplasm of breast (principal); R92.323 Mammographic fibroglandular density, bilateral breasts